=== PATIENT | male | born 1975 | race Caucasian/White ===

== ENCOUNTER 2017-07-02 11:21 | Emergency (ER) | payer OTHER ==
[~2017-07-02] VITALS: Ht 182.9 cm; Wt 95.3 kg
[2017-07-02] MEDS ORDERED: methylPREDNISolone SOD SUCC 125 MG/2 ML VL IM ONE (12:00)
[2017-07-02] MEDS ORDERED: HYDROcodone-ACET 7.5/325MG TAB PO ONE (12:00)
[2017-07-02 13:32] VITALS: BP 148/80
== END 2017-07-02 13:35 | disposition home or self-care (01) ==
LOC: ER 11:21
DX: M54.16 Radiculopathy, lumbar region (principal); G89.29 Other chronic pain; F17.210 Nicotine dependence, cigarettes, uncomplicated
CPT/HCPCS: 72131; 96372; 99284; J2930

== ENCOUNTER 2017-07-13 17:30 | Emergency (ER) | payer OTHER ==
[~2017-07-13] VITALS: Ht 182.9 cm; Wt 95.3 kg
[2017-07-13 18:11] LABS: Urine Bilirubin Negative (Negative); Urine Blood Negative /uL (Negative); Urine Color Yellow (Yellow); Urine Glucose Normal (Normal); Urine Ketone Negative (Negative); Urine Mucus FEW (None Seen); Urine Nitrite Negative (Negative); Urine RBC 3 /hpf (0 - 3)
[2017-07-13] MEDS ORDERED: ONDANSETRON HCL 4 MG/2 ML VIAL IV ONE (19:45)
[2017-07-13] MEDS ORDERED: HYDROmorphone HCL 2 MG/ML VL IV ONE (19:45)
[2017-07-13 20:39] VITALS: BP 115/69
== END 2017-07-13 22:14 | disposition home or self-care (01) ==
LOC: ER 17:30
DX: M54.16 Radiculopathy, lumbar region (principal); M51.37 Other intervertebral disc degeneration, lumbosacral region; F17.210 Nicotine dependence, cigarettes, uncomplicated
CPT/HCPCS: 72131; 81001; 96374; 96375; 99285; J1170; J2405; J7030

== ENCOUNTER 2017-09-11 03:25 | Inpatient (IN) | payer OTHER ==
[~2017-09-11] VITALS: Ht 182.9 cm; Wt 91.7 kg
[2017-09-11 04:16] LABS: Basophils # (auto) 0.1 uL; Basophils % (auto) 1.2 % (0.0-2.0); Eosinophils # (auto) 0.2 uL; Eosinophils % (auto) 2.2 % (0.0-7.0); Hematocrit 43.8 % (41.0-53.0); Hemoglobin 14.8 g/dL (13.5-17.5); Mean Corpuscular Hgb Conc. 33.9 g/dL (32.0-36.0); Mean Corpuscular Volume 85.8 fL (80.0-100.0); Mean Platelet Volume 9.4 fL (6.9-10.8); Monocytes # (auto) 0.4 uL; Monocytes % (auto) 5.3 % (0.0-12.0); Neutrophils # (auto) 4.8 uL; Neutrophils % (auto) 56.3 % (37.0-80.0); Nucleated Red Blood Cells % 0.1 %; Platelet Count (auto) 206 10^3/uL (140-450); Red Cell Distribution Width 14.3 % (11.8-14.3); White Blood Cell 8.5 10^3/uL (4.4-10.8)
[2017-09-11 04:36] LABS: INR 0.98 (0.9-1.15); Partial Thromboplastin Time 27.7 sec (22.64-33.71); Prothrombin Time 10.7 sec (9.37-12.3)
[2017-09-11 04:47] LABS: Albumin 3.6 g/dL (3.4-5.0); Anion Gap 13 (5-15); Aspartate Aminotransferase 12 U/L (15-37); BUN/Creatinine Ratio 11.5; Blood Urea Nitrogen 13 mg/dL (7-18); Calcium 8.9 mg/dL (8.5-10.1); Carbon Dioxide 20 mmol/L (21-32); Chloride 111 mmol/L (98-107); GFR African American 91 mL/min; GFR Non-African American 75 mL/min; Glucose 106 mg/dL (74-106); Potassium 3.5 mmol/L (3.5-5.1); Sodium 144 mmol/L (136-145)
[2017-09-11 04:50] LABS: B-Type Natriuretic Peptide 27.39 pg/mL (0-100)
[2017-09-11 04:51] LABS: Temperature: 23.1 C (20.0-25.0)
[2017-09-11 04:54] LABS: Alkaline Phosphatase 70 U/L (45-117); Bilirubin, Total 0.4 mg/dL (0.2-1.0); Total Protein 7.2 g/dL (6.4-8.2)
[2017-09-11] MEDS ORDERED: ASPirin 81 mg TAB PO ONE (07:30)
[2017-09-11] MEDS ORDERED: SODIUM CHLORIDE 0.9% 1,000 ML IV ONE (07:30)
[2017-09-11] MEDS ORDERED: PANTOPRAZOLE 40 MG/10 ML VIAL IV ONE (07:30)
[2017-09-11] MEDS ORDERED: COLCHICINE 0.6 MG CAP PO ONE (07:30)
[2017-09-11] MEDS ORDERED: ONDANSETRON HCL 4 MG/2 ML VIAL IV ONE (07:30)
[2017-09-11] MEDS ORDERED: MORPHINE SULF INJ 2 MG/ML SYRINGE 1ML IV ONE (07:30)
[2017-09-11] MEDS ORDERED: ACETAMINOPHEN 325 MG TAB PO ONE (08:45)
[2017-09-11] MEDS ORDERED: ZOLPIDEM TARTRATE 5 MG TAB PO PRN (11:00)
[2017-09-11] MEDS ORDERED: ACETAMINOPHEN 325 MG TAB PO PRN (11:00)
[2017-09-11] MEDS ORDERED: ONDANSETRON HCL 4 MG/2 ML VIAL IV PRN (11:00)
[2017-09-11] MEDS ORDERED: PANTOPRAZOLE 40 MG TAB PO ONE (11:00)
[2017-09-11] MEDS ORDERED: NITROGLYCERIN 0.4 MG SL TAB SL PRN ×2 (11:00)
[2017-09-11] MEDS ORDERED: LORazepam 0.5 MG TAB PO PRN (11:00)
[2017-09-11] MEDS ORDERED: ALUM & MAG HYDROX-SIMETH LIQ(MAALOX) 30 ML PO ONE (11:00)
[2017-09-11] MEDS ORDERED: MORPHINE SULF INJ 2 MG/ML SYRINGE 1ML IV PRN ×2 (11:00)
[2017-09-11] MEDS ORDERED: CLOPIDOGREL BISULFATE 75 MG TAB PO SCH (11:15)
[2017-09-11] MEDS: SODIUM CHLOR 0.9% PF (SALINE LOCK) 10ML VIAL IV SCH ×2 (12:01→23:03)
[2017-09-11] MEDS: ENALAPRIL MALEATE 2.5 MG TAB PO SCH ×2 (12:01→21:52)
[2017-09-11] MEDS: methylPREDNISolone SOD SUCC 40 MG/ML VL IV SCH ×2 (12:01→17:13)
[2017-09-11] MEDS ORDERED: POTASSIUM CHL 10% (20 MEQ/15ML) 15ml ORAL SOLN PO ONE (19:15)
[2017-09-11] MEDS ORDERED: IBUPROFEN 600 MG TAB PO ONE (19:15)
[2017-09-11] MEDS: PANTOPRAZOLE 40 MG TAB PO SCH (21:51)
[2017-09-11 22:00] VITALS: BP 110/69
[2017-09-11] MEDS ORDERED: ATORVASTATIN 20 MG TAB PO SCH (22:00)
[2017-09-11 23:37] VITALS: BP 110/69
[2017-09-11] MEDS ORDERED: OMEP20CA74 PO (23:50)
[2017-09-12 05:00] VITALS: BP 105/57
[2017-09-12 06:03] LABS: Basophils # (auto) 0 uL; Basophils % (auto) 0.1 % (0.0-2.0); Eosinophils # (auto) 0 uL; Hematocrit 42.6 % (41.0-53.0); Hemoglobin 14.1 g/dL (13.5-17.5); Lymphocytes # (auto) 1.1 uL; Lymphocytes % (auto) 7.3 % (10.0-50.0); Mean Corpuscular Hemoglobin 28.7 pg (28.0-32.0); Mean Corpuscular Hgb Conc. 33.2 g/dL (32.0-36.0); Mean Corpuscular Volume 86.3 fL (80.0-100.0); Mean Platelet Volume 9.7 fL (6.9-10.8); Monocytes # (auto) 0.3 uL; Monocytes % (auto) 2.1 % (0.0-12.0); Neutrophils % (auto) 90.5 % (37.0-80.0); Nucleated Red Blood Cells % 0.1 %; Platelet Count (auto) 223 10^3/uL (140-450); Red Cell Distribution Width 14.2 % (11.8-14.3); White Blood Cell 15.5 10^3/uL (4.4-10.8)
[2017-09-12] MEDS: SODIUM CHLOR 0.9% PF (SALINE LOCK) 10ML VIAL IV SCH ×3 (06:08→22:07)
[2017-09-12] MEDS: IBUPROFEN 600 MG TAB PO SCH ×3 (06:13→22:07)
[2017-09-12 06:21] LABS: Albumin 3.3 g/dL (3.4-5.0); BUN/Creatinine Ratio 11.2; Bilirubin, Total 0.3 mg/dL (0.2-1.0); Potassium 4.5 mmol/L (3.5-5.1)
[2017-09-12 08:00] VITALS: BP 109/63
[2017-09-12 08:07] LABS: Thyroid Peroxidase (TPO) Ab 22 IU/mL (0-34)
[2017-09-12 08:38] VITALS: BP 109/65
[2017-09-12] MEDS: DOCUSATE SOD 100 MG CAP PO SCH (09:25)
[2017-09-12] MEDS: COLCHICINE 0.6 MG CAP PO SCH ×2 (09:25→17:52)
[2017-09-12] MEDS: ENALAPRIL MALEATE 2.5 MG TAB PO SCH ×2 (09:25→22:00)
[2017-09-12] MEDS: PANTOPRAZOLE 40 MG TAB PO SCH ×2 (09:26→22:07)
[2017-09-12] MEDS: ASPirin 81 mg TAB PO SCH (09:26)
[2017-09-12 12:42] VITALS: BP 113/57
[2017-09-12] MEDS: HYDROcodone-ACET 5/325MG TAB PO PRN ×2 (12:51→23:24)
[2017-09-12 12:52] LABS: Urine RBC None Seen /hpf (0 - 3)
[2017-09-12 14:06] LABS: Urine Bilirubin Negative (Negative); Urine Blood Negative /uL (Negative); Urine Color Yellow (Yellow); Urine Glucose Normal (Normal); Urine Ketone Negative (Negative); Urine Nitrite Negative (Negative); Urine Squamous Epithelial Cell FEW /hpf (<5); Urine Urobilinogen Normal (Negative)
[2017-09-12 17:41] VITALS: BP 125/56
[2017-09-12 22:00] VITALS: BP 94/63
[2017-09-13 05:00] VITALS: BP 100/59
[2017-09-13] MEDS: IBUPROFEN 600 MG TAB PO SCH (06:12)
[2017-09-13 06:14] LABS: Basophils # (auto) 0.1 uL; Basophils % (auto) 1.2 % (0.0-2.0); Eosinophils # (auto) 0.1 uL; Eosinophils % (auto) 0.7 % (0.0-7.0); Hematocrit 42.5 % (41.0-53.0); Hemoglobin 14.3 g/dL (13.5-17.5); Lymphocytes # (auto) 3.6 uL; Lymphocytes % (auto) 38.3 % (10.0-50.0); Mean Corpuscular Hemoglobin 29.1 pg (28.0-32.0); Mean Corpuscular Hgb Conc. 33.6 g/dL (32.0-36.0); Mean Corpuscular Volume 86.7 fL (80.0-100.0); Mean Platelet Volume 9.8 fL (6.9-10.8); Monocytes # (auto) 0.6 uL; Monocytes % (auto) 6.6 % (0.0-12.0); Neutrophils % (auto) 53.2 % (37.0-80.0); Nucleated Red Blood Cells % 0.1 %; Platelet Count (auto) 210 10^3/uL (140-450); Red Cell Distribution Width 14.8 % (11.8-14.3); White Blood Cell 9.5 10^3/uL (4.4-10.8)
[2017-09-13] MEDS: SODIUM CHLOR 0.9% PF (SALINE LOCK) 10ML VIAL IV SCH (06:14)
[2017-09-13 06:40] LABS: Albumin 3.4 g/dL (3.4-5.0); Anion Gap 11 (5-15); Blood Urea Nitrogen 14 mg/dL (7-18); Calcium 8.3 mg/dL (8.5-10.1); Carbon Dioxide 20 mmol/L (21-32); Chloride 111 mmol/L (98-107); Glucose 97 mg/dL (74-106); Sodium 142 mmol/L (136-145)
[2017-09-13 06:43] LABS: Aspartate Aminotransferase 8 U/L (15-37); BUN/Creatinine Ratio 14.6; GFR African American 110 mL/min; GFR Non-African American 91 mL/min
[2017-09-13 06:47] LABS: Alkaline Phosphatase 63 U/L (45-117); Bilirubin, Total 0.2 mg/dL (0.2-1.0); Total Protein 6.7 g/dL (6.4-8.2)
[2017-09-13 08:00] VITALS: BP 94/63
[2017-09-13] MEDS ORDERED: ALBUTEROL SULF 2.5 MG/0.5ML(0.5%) NEB SOLN ONE (09:47)
[2017-09-13] MEDS ORDERED: IPRATROPIUM BROM 0.5 MG/2.5ML INH SOL ONE (09:47)
[2017-09-13 09:57] VITALS: BP 108/59
[2017-09-13] MEDS: DOCUSATE SOD 100 MG CAP PO SCH (10:00)
[2017-09-13] MEDS ORDERED: ADENOSINE 77 MG in GIVE UN-DILUTED 0 ML IV ONE (10:00)
[2017-09-13] MEDS: ENALAPRIL MALEATE 2.5 MG TAB PO SCH (10:00)
[2017-09-13] MEDS ORDERED: PANT40T PO (11:55)
[2017-09-13] MEDS ORDERED: IBU600T PO (11:58)
[2017-09-13] MEDS ORDERED: COLC0.6T56 PO (11:58)
[2017-09-13] MEDS: ASPirin 81 mg TAB PO SCH (12:16)
[2017-09-13] MEDS: COLCHICINE 0.6 MG CAP PO SCH (12:16)
[2017-09-13] MEDS: PANTOPRAZOLE 40 MG TAB PO SCH (12:16)
[2017-09-13 12:30] VITALS: BP 101/59
[2017-09-13 13:28] VITALS: BP 101/59
[2017-09-13 16:07] LABS: Sjogren's Anti-SS-A Antibody <0.2 AI (0.0-0.9)
[2017-09-14 10:08] LABS: Anti-intermyofibrillar Ab Negative (Neg:<1:20); Anti-sarcolemma Antibody Negative (Neg:<1:20)
== END 2017-09-13 14:26 | disposition home or self-care (01) | DRG 316 ==
LOC: EDBD 03:25 → ER 03:32 → TELE 03:33 → TELE-WESTW 21:55
PROVIDERS: ADMIT Internal Medicine; ATTEND Internal Medicine
DX: I30.9 Acute pericarditis, unspecified (principal); E66.9 Obesity, unspecified; K21.9 Gastro-esophageal reflux disease without esophagitis; E78.00 Pure hypercholesterolemia, unspecified; M54.16 Radiculopathy, lumbar region; E78.5 Hyperlipidemia, unspecified; N18.2 Chronic kidney disease, stage 2 (mild); F17.210 Nicotine dependence, cigarettes, uncomplicated; Z82.3 Family history of stroke; Z80.9 Family history of malignant neoplasm, unspecified; Z68.27 Body mass index [BMI] 27.0-27.9, adult
CPT/HCPCS: 36415; 71010; 78452; 80053; 80061; 81001; 83735; 83880; 84443; 84484; 85025; 85379; 85610; 85652; 85730; 86141; 86225; 86235; 86431; 93005; 93017; 93306; 94640; 96361; 96374; 96375; 99291; C9113; J0153; J2405

== ENCOUNTER → 2020-01-12 | Outpatient (CLI) | payer OTHER ==
[~2020-01-12] MED LIST: COLC0.6T56 PO; IBU600T PO; OMEP20CA74 PO; PANT40T PO
[2020-01-12 13:26] LABS: Basophils # (auto) 0.1 uL; Basophils % (auto) 0.9 % (0.0-2.0); Eosinophils # (auto) 0.3 uL; Eosinophils % (auto) 3.2 % (0.0-7.0); Hematocrit 47.2 % (41.0-53.0); Hemoglobin 15.6 g/dL (13.5-17.5); Lymphocytes # (auto) 2.2 uL; Lymphocytes % (auto) 26.2 % (10.0-50.0); Mean Corpuscular Hemoglobin 28.2 pg (28.0-32.0); Mean Corpuscular Volume 85.4 fL (80.0-100.0); Monocytes # (auto) 0.4 uL; Monocytes % (auto) 5.5 % (0.0-12.0); Neutrophils # (auto) 5.3 uL; Neutrophils % (auto) 64.2 % (37.0-80.0); Platelet Count (auto) 226 10^3/uL (140-450); Red Blood Cells 5.53 10^6/uL (4.5-5.90); White Blood Cell 8.2 10^3/uL (4.4-10.8)
[2020-01-12 13:28] LABS: Urine Bacteria NONE SEEN /hpf (None Seen); Urine Blood Negative /uL (Negative); Urine Mucus FEW (None Seen); Urine Specific Gravity 1.029 (1.001-1.035); Urine WBC <1 /hpf (0 - 3)
[2020-01-12 14:22] LABS: Albumin 3.8 g/dL (3.4-5.0); Calcium 9.4 mg/dL (8.5-10.1); Potassium 4.2 mmol/L (3.5-5.1)
[2020-01-12 14:26] LABS: BUN/Creatinine Ratio 14.6; Bilirubin, Total 0.4 mg/dL (0.2-1.0); Total Protein 8.2 g/dL (6.4-8.2)
== END | disposition home or self-care (01) ==
LOC: LAB 12:49
PROVIDERS: ATTEND Internal Medicine
DX: E78.00 Pure hypercholesterolemia, unspecified (principal); R07.81 Pleurodynia
CPT/HCPCS: 36415; 80053; 81001; 84439; 84443; 85025; 85379; 85652

== ENCOUNTER → 2020-04-13 | Outpatient (CLI) | payer OTHER ==
[~2020-04-13] MED LIST changes: +ALBUTEROL SULF 2.5 MG/0.5ML(0.5%) NEB SOLN ONE; +GABA100C9 PO
== END | disposition home or self-care (01) ==
LOC: RT 08:51
PROVIDERS: ATTEND Internal Medicine
DX: J18.9 Pneumonia, unspecified organism (principal)
CPT/HCPCS: 94060; 94727; 94729

== ENCOUNTER 2020-04-22 17:42 | Inpatient (IN) | payer OTHER ==
[~2020-04-22] VITALS: Ht 182.9 cm; Wt 99.5 kg
[~2020-04-22 17:42] MED LIST changes: -ALBUTEROL SULF 2.5 MG/0.5ML(0.5%) NEB SOLN ONE; -GABA100C9 PO
[2020-04-22 18:31] LABS: Basophils # (auto) 0.1 10 ^3/uL (0-0.2); Basophils % (auto) 0.8 % (0.0-2.0); Eosinophils # (auto) 0.2 10 ^3/uL (0-0.8); Eosinophils % (auto) 2.7 % (0.0-7.0); Hematocrit 45.1 % (41.0-53.0); Hemoglobin 15.1 g/dL (13.5-17.5); Lymphocytes # (auto) 2.2 10 ^3/uL (0.4-5.4); Lymphocytes % (auto) 28.5 % (10.0-50.0); Mean Corpuscular Hemoglobin 28.4 pg (28.0-32.0); Mean Corpuscular Hgb Conc. 33.5 g/dL (32.0-36.0); Monocytes # (auto) 0.5 10 ^3/uL (0-1.3); Monocytes % (auto) 6.1 % (0.0-12.0); Neutrophils # (auto) 4.7 10 ^3/uL (1.6-8.6); Neutrophils % (auto) 61.9 % (37.0-80.0); Nucleated Red Blood Cells % 0.1 %; Platelet Count (auto) 233 10^3/uL (140-450); Red Cell Distribution Width 14.5 % (11.8-14.3); White Blood Cell 7.6 10^3/uL (4.4-10.8)
[2020-04-22 18:51] LABS: Albumin 3.7 g/dL (3.4-5.0); BUN/Creatinine Ratio 12.9; Calcium 8.6 mg/dL (8.5-10.1); Potassium 3.7 mmol/L (3.5-5.1)
[2020-04-22 18:55] LABS: Bilirubin, Total 0.4 mg/dL (0.2-1.0)
[2020-04-22 19:47] LABS: Urine Bacteria NONE SEEN /hpf (None Seen); Urine Blood Negative /uL (Negative); Urine Mucus FEW (None Seen); Urine Specific Gravity 1.024 (1.001-1.035); Urine WBC 1 /hpf (0 - 3)
[2020-04-22] MEDS ORDERED: SODIUM CHLORIDE 0.9% 1,000 ML IV ONE (22:54)
[2020-04-22] MEDS ORDERED: HYDROmorphone HCL 2 MG/ML VL IV ONE (23:00)
[2020-04-22] MEDS ORDERED: ONDANSETRON HCL 4 MG/2 ML VIAL IV ONE (23:00)
[2020-04-23] MEDS ORDERED: DOCUSATE SOD 100 MG CAP PO PRN (02:15)
[2020-04-23] MEDS ORDERED: HYDROcodone-ACET 5/325MG TAB PO PRN (02:15)
[2020-04-23] MEDS: D5W 5% 1,000 ML IV SCH ×2 (02:34→18:17)
[2020-04-23] MEDS: metroNIDAZOLE 500MG/100ML 100 ML IV SCH ×3 (02:35→18:17)
[2020-04-23] MEDS ORDERED: GABA100C9 PO (04:55)
[2020-04-23] MEDS: MORPHINE SULF INJ 2 MG/ML SYRINGE 1ML IV PRN ×3 (05:43→21:58)
[2020-04-23] MEDS: ONDANSETRON HCL 4 MG/2 ML VIAL IV PRN ×3 (05:43→21:59)
[2020-04-23 07:16] LABS: Basophils # (auto) 0.1 10 ^3/uL (0-0.2); Basophils % (auto) 0.8 % (0.0-2.0); Eosinophils # (auto) 0.2 10 ^3/uL (0-0.8); Eosinophils % (auto) 3.5 % (0.0-7.0); Hematocrit 41.6 % (41.0-53.0); Hemoglobin 13.8 g/dL (13.5-17.5); Lymphocytes # (auto) 2.3 10 ^3/uL (0.4-5.4); Mean Corpuscular Hemoglobin 28.5 pg (28.0-32.0); Mean Corpuscular Hgb Conc. 33.2 g/dL (32.0-36.0); Mean Corpuscular Volume 85.7 fL (80.0-100.0); Monocytes # (auto) 0.5 10 ^3/uL (0-1.3); Monocytes % (auto) 7.7 % (0.0-12.0); Neutrophils # (auto) 3.2 10 ^3/uL (1.6-8.6); Nucleated Red Blood Cells % 0.2 %; Platelet Count (auto) 225 10^3/uL (140-450); Red Blood Cells 4.85 10^6/uL (4.5-5.90); Red Cell Distribution Width 14.3 % (11.8-14.3); White Blood Cell 6.2 10^3/uL (4.4-10.8)
[2020-04-23 07:32] LABS: Calcium 8.2 mg/dL (8.5-10.1)
[2020-04-23 07:34] LABS: BUN/Creatinine Ratio 14.9
[2020-04-23 13:08] VITALS: BP 120/76
[2020-04-23] MEDS: ACETAMINOPHEN 325 MG TAB PO PRN (13:30)
[2020-04-23] MEDS ORDERED: cefTRIAXone 1GM/50ML D5W 50 ML IV ONE (14:15)
[2020-04-23 15:32] LABS: INR 1.03 (0.9-1.15)
[2020-04-23 17:00] VITALS: BP 116/65
[2020-04-23 23:30] VITALS: BP 112/67
[2020-04-24] MEDS: metroNIDAZOLE 500MG/100ML 100 ML IV SCH ×5 (00:24→23:11)
[2020-04-24 05:54] VITALS: BP 98/63
[2020-04-24 06:25] LABS: Basophils # (auto) 0 10 ^3/uL (0-0.2); Basophils % (auto) 0.6 % (0.0-2.0); Eosinophils # (auto) 0.2 10 ^3/uL (0-0.8); Eosinophils % (auto) 3.7 % (0.0-7.0); Hematocrit 43.1 % (41.0-53.0); Hemoglobin 14.5 g/dL (13.5-17.5); Lymphocytes # (auto) 1.7 10 ^3/uL (0.4-5.4); Lymphocytes % (auto) 27.3 % (10.0-50.0); Mean Corpuscular Hemoglobin 28.9 pg (28.0-32.0); Mean Corpuscular Hgb Conc. 33.6 g/dL (32.0-36.0); Monocytes # (auto) 0.4 10 ^3/uL (0-1.3); Monocytes % (auto) 6.7 % (0.0-12.0); Neutrophils # (auto) 3.9 10 ^3/uL (1.6-8.6); Neutrophils % (auto) 61.7 % (37.0-80.0); Nucleated Red Blood Cells % 0.1 %; Platelet Count (auto) 194 10^3/uL (140-450); Red Blood Cells 5.01 10^6/uL (4.5-5.90); Red Cell Distribution Width 14.4 % (11.8-14.3); White Blood Cell 6.3 10^3/uL (4.4-10.8)
[2020-04-24] MEDS: MORPHINE SULF INJ 2 MG/ML SYRINGE 1ML IV PRN ×4 (06:38→22:18)
[2020-04-24 06:43] LABS: Calcium 8.4 mg/dL (8.5-10.1); Potassium 3.8 mmol/L (3.5-5.1)
[2020-04-24 06:45] LABS: BUN/Creatinine Ratio 10.2
[2020-04-24] MEDS: ONDANSETRON HCL 4 MG/2 ML VIAL IV PRN ×4 (06:47→22:19)
[2020-04-24 09:13] VITALS: BP 117/74
[2020-04-24] MEDS: cefTRIAXone 1GM/50ML D5W 50 ML IV SCH (10:31)
[2020-04-24] MEDS: PANTOPRAZOLE 40 MG/10 ML VIAL INJ IV SCH (10:31)
[2020-04-24 13:00] VITALS: BP 106/68
[2020-04-24] MEDS: D5W 5% 1,000 ML IV SCH (14:34)
[2020-04-24 17:14] VITALS: BP 122/64
[2020-04-24 22:00] VITALS: BP 156/87
[2020-04-25] MEDS: D5W 5% 1,000 ML IV SCH ×2 (04:14→21:11)
[2020-04-25] MEDS: MORPHINE SULF INJ 2 MG/ML SYRINGE 1ML IV PRN ×4 (04:46→20:26)
[2020-04-25] MEDS: ONDANSETRON HCL 4 MG/2 ML VIAL IV PRN ×3 (04:46→20:26)
[2020-04-25 05:00] VITALS: BP 114/64
[2020-04-25] MEDS: metroNIDAZOLE 500MG/100ML 100 ML IV SCH ×3 (05:27→17:28)
[2020-04-25 05:43] LABS: Basophils # (auto) 0 10 ^3/uL (0-0.2); Basophils % (auto) 0.6 % (0.0-2.0); Eosinophils # (auto) 0.2 10 ^3/uL (0-0.8); Eosinophils % (auto) 2.6 % (0.0-7.0); Hemoglobin 13.8 g/dL (13.5-17.5); Lymphocytes % (auto) 30.2 % (10.0-50.0); Mean Corpuscular Hemoglobin 28.9 pg (28.0-32.0); Mean Corpuscular Hgb Conc. 33.8 g/dL (32.0-36.0); Mean Corpuscular Volume 85.5 fL (80.0-100.0); Monocytes # (auto) 0.5 10 ^3/uL (0-1.3); Monocytes % (auto) 7.5 % (0.0-12.0); Neutrophils # (auto) 3.9 10 ^3/uL (1.6-8.6); Neutrophils % (auto) 59.1 % (37.0-80.0); Nucleated Red Blood Cells % 0.1 %; Platelet Count (auto) 198 10^3/uL (140-450); Red Cell Distribution Width 14.4 % (11.8-14.3); White Blood Cell 6.6 10^3/uL (4.4-10.8)
[2020-04-25 05:51] LABS: Calcium 8.3 mg/dL (8.5-10.1); Potassium 3.6 mmol/L (3.5-5.1)
[2020-04-25 07:27] LABS: BUN/Creatinine Ratio 6.8
[2020-04-25] MEDS: PANTOPRAZOLE 40 MG/10 ML VIAL INJ IV SCH (08:24)
[2020-04-25] MEDS: cefTRIAXone 1GM/50ML D5W 50 ML IV SCH (08:24)
[2020-04-25 09:00] VITALS: BP 102/62
[2020-04-25 13:00] VITALS: BP 117/72
[2020-04-25 16:23] LABS: INR 1.05 (0.9-1.15); Partial Thromboplastin Time 31.1 sec (23.64-32.05)
[2020-04-25] MEDS: SUCRALFATE 1 GM/10 ML ORAL SUSP PO SCH ×2 (16:44→21:56)
[2020-04-25 20:15] VITALS: BP 123/77
[2020-04-25] MEDS: PANTOPRAZOLE 40 MG TAB PO SCH (21:56)
[2020-04-25 22:00] VITALS: BP 123/77
[2020-04-26] MEDS: metroNIDAZOLE 500MG/100ML 100 ML IV SCH ×4 (00:08→17:01)
[2020-04-26] MEDS: MORPHINE SULF INJ 2 MG/ML SYRINGE 1ML IV PRN ×4 (00:28→20:46)
[2020-04-26] MEDS: ONDANSETRON HCL 4 MG/2 ML VIAL IV PRN ×4 (00:28→20:47)
[2020-04-26 05:25] VITALS: BP 106/64
[2020-04-26] MEDS: SUCRALFATE 1 GM/10 ML ORAL SUSP PO SCH ×4 (06:24→22:10)
[2020-04-26 07:11] LABS: Basophils # (auto) 0.1 10 ^3/uL (0-0.2); Eosinophils # (auto) 0.2 10 ^3/uL (0-0.8); Eosinophils % (auto) 3.1 % (0.0-7.0); Hematocrit 43.1 % (41.0-53.0); Hemoglobin 14.2 g/dL (13.5-17.5); Lymphocytes # (auto) 1.7 10 ^3/uL (0.4-5.4); Lymphocytes % (auto) 25.8 % (10.0-50.0); Mean Corpuscular Hemoglobin 28.3 pg (28.0-32.0); Mean Corpuscular Hgb Conc. 32.9 g/dL (32.0-36.0); Mean Corpuscular Volume 86.2 fL (80.0-100.0); Monocytes # (auto) 0.5 10 ^3/uL (0-1.3); Monocytes % (auto) 7.3 % (0.0-12.0); Neutrophils # (auto) 4.2 10 ^3/uL (1.6-8.6); Neutrophils % (auto) 62.8 % (37.0-80.0); Platelet Count (auto) 202 10^3/uL (140-450); Red Blood Cells 4.99 10^6/uL (4.5-5.90); Red Cell Distribution Width 14.2 % (11.8-14.3); White Blood Cell 6.7 10^3/uL (4.4-10.8)
[2020-04-26 07:24] LABS: Calcium 8.6 mg/dL (8.5-10.1); Potassium 3.6 mmol/L (3.5-5.1)
[2020-04-26 07:26] LABS: BUN/Creatinine Ratio 6.5
[2020-04-26 08:00] VITALS: BP 119/65
[2020-04-26] MEDS: cefTRIAXone 1GM/50ML D5W 50 ML IV SCH (09:10)
[2020-04-26] MEDS: PANTOPRAZOLE 40 MG TAB PO SCH ×2 (09:10→22:10)
[2020-04-26] MEDS ORDERED: SODIUM CHLORIDE LOCK 10 ML ONE (09:17)
[2020-04-26] MEDS ORDERED: LIDOCAINE VISCOUS 2% 15ML UD ONE (09:17)
[2020-04-26] MEDS ORDERED: diphenhdrAMINE HCL 50 MG/1 ML VL ONE (09:18)
[2020-04-26 09:34] VITALS: BP 119/65
[2020-04-26] MEDS: fentaNYL CITRATE 100 MCG/2 ML VL ONE ×2 (11:59→12:02)
[2020-04-26] MEDS: MIDAZOLAM HCL 5 MG/ML-1ML VIAL ONE ×2 (11:59→12:02)
[2020-04-26 13:00] VITALS: BP 127/72
[2020-04-26 13:12] LABS: Hepatitis A Ab IgM Negative; Hepatitis B Core IgM Negative; Hepatitis B Surface Antigen Negative (Negative); Hepatitis C Antibody Negative (Negative)
[2020-04-26] MEDS ORDERED: LORazepam 2MG/ML-1ML VIAL IV ONE (13:15)
[2020-04-26] MEDS: D5W 5% 1,000 ML IV SCH (13:49)
[2020-04-26 17:00] VITALS: BP 119/72
[2020-04-26 22:00] VITALS: BP 133/71
[2020-04-27] MEDS: metroNIDAZOLE 500MG/100ML 100 ML IV SCH ×5 (00:02→23:18)
[2020-04-27 05:00] VITALS: BP 121/78
[2020-04-27] MEDS: SUCRALFATE 1 GM/10 ML ORAL SUSP PO SCH ×4 (06:07→22:03)
[2020-04-27] MEDS: ONDANSETRON HCL 4 MG/2 ML VIAL IV PRN (06:08)
[2020-04-27] MEDS: MORPHINE SULF INJ 2 MG/ML SYRINGE 1ML IV PRN ×3 (06:08→22:05)
[2020-04-27] MEDS: D5W 5% 1,000 ML IV SCH ×2 (06:23→23:14)
[2020-04-27 06:58] LABS: Basophils # (auto) 0.1 10 ^3/uL (0-0.2); Eosinophils # (auto) 0.2 10 ^3/uL (0-0.8); Eosinophils % (auto) 3.5 % (0.0-7.0); Hematocrit 42.2 % (41.0-53.0); Hemoglobin 14.1 g/dL (13.5-17.5); Lymphocytes # (auto) 1.8 10 ^3/uL (0.4-5.4); Mean Corpuscular Hemoglobin 28.8 pg (28.0-32.0); Mean Corpuscular Hgb Conc. 33.5 g/dL (32.0-36.0); Mean Corpuscular Volume 86.1 fL (80.0-100.0); Monocytes # (auto) 0.5 10 ^3/uL (0-1.3); Monocytes % (auto) 7.3 % (0.0-12.0); Neutrophils # (auto) 3.7 10 ^3/uL (1.6-8.6); Neutrophils % (auto) 59.2 % (37.0-80.0); Nucleated Red Blood Cells % 0.1 %; Platelet Count (auto) 201 10^3/uL (140-450); Red Cell Distribution Width 14.2 % (11.8-14.3); White Blood Cell 6.3 10^3/uL (4.4-10.8)
[2020-04-27 07:02] LABS: BUN/Creatinine Ratio 8.2; Calcium 8.7 mg/dL (8.5-10.1); Potassium 3.7 mmol/L (3.5-5.1)
[2020-04-27 08:00] VITALS: BP 108/67
[2020-04-27 09:00] VITALS: BP 108/67
[2020-04-27] MEDS: PANTOPRAZOLE 40 MG TAB PO SCH ×2 (09:00→22:03)
[2020-04-27] MEDS: cefTRIAXone 1GM/50ML D5W 50 ML IV SCH (09:00)
[2020-04-27 13:00] VITALS: BP 117/67
[2020-04-27 16:50] VITALS: BP 102/68
[2020-04-27 22:00] VITALS: BP 117/55
[2020-04-27] MEDS: PROMETHAZINE HCL 25 MG/ML 1ML IV PRN (22:05)
[2020-04-28 05:01] VITALS: BP 98/65
[2020-04-28] MEDS: metroNIDAZOLE 500MG/100ML 100 ML IV SCH (05:40)
[2020-04-28] MEDS: MORPHINE SULF INJ 2 MG/ML SYRINGE 1ML IV PRN ×3 (06:12→19:50)
[2020-04-28 06:21] LABS: Basophils # (auto) 0.1 10 ^3/uL (0-0.2); Basophils % (auto) 0.8 % (0.0-2.0); Eosinophils # (auto) 0.2 10 ^3/uL (0-0.8); Eosinophils % (auto) 3.9 % (0.0-7.0); Hematocrit 41.9 % (41.0-53.0); Lymphocytes # (auto) 2.2 10 ^3/uL (0.4-5.4); Lymphocytes % (auto) 35.3 % (10.0-50.0); Mean Corpuscular Hemoglobin 28.5 pg (28.0-32.0); Mean Corpuscular Hgb Conc. 33.4 g/dL (32.0-36.0); Mean Corpuscular Volume 85.3 fL (80.0-100.0); Monocytes # (auto) 0.5 10 ^3/uL (0-1.3); Monocytes % (auto) 7.6 % (0.0-12.0); Neutrophils # (auto) 3.3 10 ^3/uL (1.6-8.6); Neutrophils % (auto) 52.4 % (37.0-80.0); Nucleated Red Blood Cells % 0.1 %; Platelet Count (auto) 214 10^3/uL (140-450); Red Blood Cells 4.91 10^6/uL (4.5-5.90); Red Cell Distribution Width 14.4 % (11.8-14.3); White Blood Cell 6.3 10^3/uL (4.4-10.8)
[2020-04-28] MEDS: SUCRALFATE 1 GM/10 ML ORAL SUSP PO SCH ×4 (06:33→21:34)
[2020-04-28 06:44] LABS: Potassium 3.7 mmol/L (3.5-5.1)
[2020-04-28 06:51] LABS: Calcium 8.3 mg/dL (8.5-10.1)
[2020-04-28] MEDS: PROMETHAZINE HCL 25 MG/ML 1ML IV PRN ×2 (08:56→16:14)
[2020-04-28] MEDS: PANTOPRAZOLE 40 MG TAB PO SCH ×2 (08:56→21:35)
[2020-04-28] MEDS: cefTRIAXone 1GM/50ML D5W 50 ML IV SCH (08:56)
[2020-04-28 09:00] VITALS: BP 118/71
[2020-04-28 13:00] VITALS: BP 129/72
[2020-04-28 17:00] VITALS: BP 137/74
[2020-04-28] MEDS: ACETAMINOPHEN 325 MG TAB PO PRN (17:52)
[2020-04-28 22:00] VITALS: BP 126/65
[2020-04-29 05:00] VITALS: BP 115/83
[2020-04-29] MEDS: MORPHINE SULF INJ 2 MG/ML SYRINGE 1ML IV PRN ×3 (05:09→23:39)
[2020-04-29] MEDS: SUCRALFATE 1 GM/10 ML ORAL SUSP PO SCH ×4 (06:29→22:13)
[2020-04-29] MEDS: PANTOPRAZOLE 40 MG TAB PO SCH ×2 (08:59→22:14)
[2020-04-29] MEDS: PROMETHAZINE HCL 25 MG/ML 1ML IV PRN (08:59)
[2020-04-29 09:00] VITALS: BP 125/74
[2020-04-29 14:39] VITALS: BP 119/71
[2020-04-29] MEDS: HYOSCYAMINE SULF 0.125 MG ODT TAB PO PRN ×2 (16:06→22:14)
[2020-04-29 17:00] VITALS: BP 140/93
[2020-04-29 20:00] VITALS: BP 120/85
[2020-04-29] MEDS: ACETAMINOPHEN 325 MG TAB PO PRN (20:51)
[2020-04-29 21:57] VITALS: BP 120/85
[2020-04-30] VITALS (7 sets, daily range): BP systolic 103–128; BP diastolic 68–84
[2020-04-30] MEDS: SUCRALFATE 1 GM/10 ML ORAL SUSP PO SCH ×4 (06:33→22:26)
[2020-04-30 07:04] LABS: Basophils # (auto) 0.1 10 ^3/uL (0-0.2); Basophils % (auto) 0.9 % (0.0-2.0); Eosinophils # (auto) 0.2 10 ^3/uL (0-0.8); Eosinophils % (auto) 3.8 % (0.0-7.0); Hematocrit 45.8 % (41.0-53.0); Hemoglobin 15.4 g/dL (13.5-17.5); Lymphocytes # (auto) 2.1 10 ^3/uL (0.4-5.4); Lymphocytes % (auto) 32.3 % (10.0-50.0); Mean Corpuscular Hemoglobin 29.1 pg (28.0-32.0); Mean Corpuscular Hgb Conc. 33.6 g/dL (32.0-36.0); Mean Corpuscular Volume 86.6 fL (80.0-100.0); Monocytes # (auto) 0.5 10 ^3/uL (0-1.3); Monocytes % (auto) 6.9 % (0.0-12.0); Neutrophils # (auto) 3.7 10 ^3/uL (1.6-8.6); Neutrophils % (auto) 56.1 % (37.0-80.0); Nucleated Red Blood Cells % 0.1 %; Platelet Count (auto) 220 10^3/uL (140-450); Red Blood Cells 5.29 10^6/uL (4.5-5.90); Red Cell Distribution Width 14.7 % (11.8-14.3); White Blood Cell 6.6 10^3/uL (4.4-10.8)
[2020-04-30 07:23] LABS: Albumin 3.6 g/dL (3.4-5.0); Calcium 8.9 mg/dL (8.5-10.1); Potassium 4.5 mmol/L (3.5-5.1)
[2020-04-30 07:26] LABS: BUN/Creatinine Ratio 10.2; Bilirubin, Total 0.5 mg/dL (0.2-1.0); Total Protein 7.5 g/dL (6.4-8.2)
[2020-04-30] MEDS: PANTOPRAZOLE 40 MG TAB PO SCH ×2 (09:39→22:26)
[2020-04-30] MEDS: MORPHINE SULF INJ 2 MG/ML SYRINGE 1ML IV PRN (09:40)
[2020-04-30] MEDS: HYOSCYAMINE SULF 0.125 MG ODT TAB PO PRN ×3 (09:44→22:31)
[2020-04-30] MEDS ORDERED: ONDANSETRON ODT 4 MG TAB PO PRN (14:45)
[2020-04-30] MEDS: HYDROcodone-ACET 5/325MG TAB PO PRN (18:29)
[2020-04-30] MEDS: DOCUSATE SOD 100 MG CAP PO SCH (22:00)
[2020-05-01] VITALS (7 sets, daily range): BP systolic 98–112; BP diastolic 60–73
[2020-05-01] MEDS: HYDROcodone-ACET 5/325MG TAB PO PRN ×4 (00:39→20:21)
[2020-05-01] MEDS: SUCRALFATE 1 GM/10 ML ORAL SUSP PO SCH ×4 (06:22→21:57)
[2020-05-01] MEDS: DOCUSATE SOD 100 MG CAP PO SCH ×2 (09:30→21:58)
[2020-05-01] MEDS: PANTOPRAZOLE 40 MG TAB PO SCH ×2 (09:30→21:57)
[2020-05-01] MEDS: HYOSCYAMINE SULF 0.125 MG ODT TAB PO PRN (10:29)
[2020-05-01] MEDS ORDERED: PROMETHAZINE HCL 6.25 MG/5 ML ORAL SYRUP PO PRN (10:45)
[2020-05-02 04:58] VITALS: BP 104/64
[2020-05-02] MEDS: SUCRALFATE 1 GM/10 ML ORAL SUSP PO SCH ×2 (06:21→12:02)
[2020-05-02] MEDS: HYDROcodone-ACET 5/325MG TAB PO PRN (07:55)
[2020-05-02 08:00] VITALS: BP 110/71
[2020-05-02 08:58] VITALS: BP 110/71
[2020-05-02] MEDS: DOCUSATE SOD 100 MG CAP PO SCH (10:00)
[2020-05-02] MEDS: PANTOPRAZOLE 40 MG TAB PO SCH (10:39)
[2020-05-02 12:38] VITALS: BP 108/75
== END 2020-05-02 14:45 | disposition home or self-care (01) | DRG 446 ==
LOC: ER 17:42 → OVERFLOW 17:43 → WEST WING 04-23 10:07
PROVIDERS: ADMIT Hospitalist; ATTEND Internal Medicine Nephrology
PROC: CF2YYZZ Tomographic (Tomo) Nuclear Medicine Imaging of Hepatobiliary System and Pancreas using Other Radionuclide (ICD-10-PCS; 2020-04-24)
PROC: BF35ZZZ Magnetic Resonance Imaging (MRI) of Liver (ICD-10-PCS; 2020-04-26)
PROC: 0DB68ZX Excision of Stomach, Via Natural or Artificial Opening Endoscopic, Diagnostic (ICD-10-PCS; principal; 2020-04-26 11:56)
DX: K82.8 Other specified diseases of gallbladder (principal); K29.80 Duodenitis without bleeding; K29.70 Gastritis, unspecified, without bleeding; K81.9 Cholecystitis, unspecified; R16.0 Hepatomegaly, not elsewhere classified; G89.29 Other chronic pain; K21.9 Gastro-esophageal reflux disease without esophagitis; K44.9 Diaphragmatic hernia without obstruction or gangrene; G58.9 Mononeuropathy, unspecified; M54.9 Dorsalgia, unspecified; F17.210 Nicotine dependence, cigarettes, uncomplicated; Z79.899 Other long term (current) drug therapy; Z80.1 Family history of malignant neoplasm of trachea, bronchus and lung; Z82.5 Family history of asthma and other chronic lower respiratory diseases; Z82.3 Family history of stroke; Z81.8 Family history of other mental and behavioral disorders
CPT/HCPCS: 36415; 74176; 74181; 76705; 78226; 80048; 80053; 80074; 81001; 82150; 83036; 83690; 84443; 85025; 85610; 85730; 86308; 86850; 86900; 86901; 93005; C9113; G0378; J0696; J2250; J2405; J3490

== ENCOUNTER → 2020-06-01 | Outpatient (CLI) | payer OTHER ==
[~2020-06-01] MED LIST changes: +GABA100C9 PO
[2020-06-01 14:23] LABS: Basophils # (auto) 0.1 10 ^3/uL (0-0.2); Basophils % (auto) 1.2 % (0.0-2.0); Eosinophils # (auto) 0.2 10 ^3/uL (0-0.8); Hematocrit 42.8 % (41.0-53.0); Hemoglobin 14.2 g/dL (13.5-17.5); Lymphocytes # (auto) 1.4 10 ^3/uL (0.4-5.4); Lymphocytes % (auto) 23.9 % (10.0-50.0); Mean Corpuscular Hemoglobin 28.4 pg (28.0-32.0); Mean Corpuscular Hgb Conc. 33.1 g/dL (32.0-36.0); Mean Corpuscular Volume 85.8 fL (80.0-100.0); Monocytes # (auto) 0.3 10 ^3/uL (0-1.3); Monocytes % (auto) 5.5 % (0.0-12.0); Neutrophils % (auto) 65.4 % (37.0-80.0); Nucleated Red Blood Cells % 0.1 %; Platelet Count (auto) 237 10^3/uL (140-450); Red Blood Cells 4.99 10^6/uL (4.5-5.90); Red Cell Distribution Width 14.4 % (11.8-14.3)
[2020-06-01 14:48] LABS: Albumin 3.7 g/dL (3.4-5.0); Calcium 9.2 mg/dL (8.5-10.1)
[2020-06-01 14:53] LABS: BUN/Creatinine Ratio 10.9; Bilirubin, Total 0.3 mg/dL (0.2-1.0); Total Protein 7.8 g/dL (6.4-8.2)
== END | disposition home or self-care (01) ==
LOC: LAB 12:55
PROVIDERS: ATTEND Internal Medicine
DX: Z51.89 Encounter for other specified aftercare (principal); Z98.890 Other specified postprocedural states; Z90.49 Acquired absence of other specified parts of digestive tract
CPT/HCPCS: 36415; 80053; 80061; 82150; 85025; 85652

== ENCOUNTER → 2020-07-26 | Outpatient (CLI) | payer OTHER ==
[2020-07-26 09:30] VITALS: BP 127/74
== END | disposition home or self-care (01) ==
LOC: XY 08:06
PROVIDERS: ATTEND Internal Medicine
DX: Z01.810 Encounter for preprocedural cardiovascular examination (principal)
CPT/HCPCS: 78452; 93017; A9500

== ENCOUNTER → 2020-07-28 | Outpatient (CLI) | payer OTHER | END | disposition home or self-care (01) | LOC: XYW 09:48 | PROVIDERS: ATTEND Internal Medicine | DX: Z01.810 Encounter for preprocedural cardiovascular examination (principal) | CPT/HCPCS: 93306 ==

== ENCOUNTER → 2020-07-29 | Outpatient (CLI) | payer OTHER | END | disposition home or self-care (01) | LOC: LAB 09:14 | PROVIDERS: ATTEND Internal Medicine | DX: K80.50 Calculus of bile duct without cholangitis or cholecystitis without obstruction (principal) | CPT/HCPCS: 36415; 82565; 84520 ==

== ENCOUNTER → 2020-08-25 | Outpatient (CLI) | payer OTHER | END | disposition home or self-care (01) | LOC: LAB 09:58 | PROVIDERS: ATTEND Internal Medicine | DX: R07.89 Other chest pain (principal) | CPT/HCPCS: 36415; 85379 ==

== ENCOUNTER 2020-09-11 19:44 | Inpatient (IN) | payer OTHER ==
[~2020-09-11] VITALS: Ht 182.9 cm; Wt 108.6 kg
[2020-09-11] MEDS ORDERED: ASPirin 81 mg TAB PO ONE (20:00)
[2020-09-11] MEDS ORDERED: SODIUM CHLORIDE 0.9% 1,000 ML IVB ONE (20:00)
[2020-09-11] MEDS ORDERED: ONDANSETRON HCL 4 MG/2 ML VIAL IV ONE (20:30)
[2020-09-11] MEDS ORDERED: MORPHINE SULF INJ 2 MG/ML SYRINGE 1ML IV ONE (20:30)
[2020-09-11 20:50] LABS: Basophils # (auto) 0.1 10 ^3/uL (0-0.2); Basophils % (auto) 0.6 % (0.0-2.0); Eosinophils # (auto) 0.2 10 ^3/uL (0-0.8); Eosinophils % (auto) 2.8 % (0.0-7.0); Hematocrit 43.2 % (41.0-53.0); Hemoglobin 14.5 g/dL (13.5-17.5); Lymphocytes # (auto) 2.5 10 ^3/uL (0.4-5.4); Lymphocytes % (auto) 29.1 % (10.0-50.0); Mean Corpuscular Hemoglobin 28.4 pg (28.0-32.0); Mean Corpuscular Hgb Conc. 33.7 g/dL (32.0-36.0); Mean Corpuscular Volume 84.5 fL (80.0-100.0); Monocytes # (auto) 0.5 10 ^3/uL (0-1.3); Monocytes % (auto) 6.5 % (0.0-12.0); Neutrophils # (auto) 5.2 10 ^3/uL (1.6-8.6); Nucleated Red Blood Cells % 0.1 %; Platelet Count (auto) 231 10^3/uL (140-450); Red Blood Cells 5.11 10^6/uL (4.5-5.90); Red Cell Distribution Width 14.9 % (11.8-14.3); White Blood Cell 8.5 10^3/uL (4.4-10.8)
[2020-09-11 21:03] LABS: Albumin 3.4 g/dL (3.4-5.0); Anion Gap 7 (5-15); Calcium 8.7 mg/dL (8.5-10.1); Carbon Dioxide 21 mmol/L (21-32); Chloride 111 mmol/L (98-107); Glucose 101 mg/dL (74-106); INR 0.93 (0.9-1.15); Magnesium 2.5 mg/dL (1.6-2.6); Partial Thromboplastin Time 28.2 sec (23.0-31.2); Potassium 3.7 mmol/L (3.5-5.1); Sodium 139 mmol/L (136-145)
[2020-09-11 21:10] LABS: Alanine Aminotransferase 35 U/L (16-61); Alkaline Phosphatase 87 U/L (45-117); Aspartate Aminotransferase 19 U/L (15-37); Bilirubin, Total 0.3 mg/dL (0.2-1.0); GFR African American 120 mL/min; GFR Non-African American 99 mL/min; Total Protein 7.3 g/dL (6.4-8.2)
[2020-09-11 21:21] LABS: BUN/Creatinine Ratio 9.1; Blood Urea Nitrogen 8 mg/dL (7-18)
[2020-09-11] MEDS ORDERED: MORPHINE SULF INJ 2 MG/ML SYRINGE 1ML IV PRN (22:45)
[2020-09-11] MEDS ORDERED: DOCUSATE SOD 100 MG CAP PO PRN (22:45)
[2020-09-11] MEDS ORDERED: ACETAMINOPHEN 325 MG TAB PO PRN (22:45)
[2020-09-11] MEDS ORDERED: NITROGLYCERIN 0.4 MG SL TAB SL PRN (22:45)
[2020-09-11] MEDS ORDERED: HYDROcodone-ACET 5/325MG TAB PO PRN (22:45)
[2020-09-11] MEDS ORDERED: ONDANSETRON HCL 4 MG/2 ML VIAL IV PRN (22:45)
[2020-09-11 23:42] VITALS: BP 141/84
--- NOTE | 2020-09-11 23:45 | NUR ---
Telemetry admit from PAULETTE QUIROZ admitted to Telemetry unit SBAR not received. Patient oriented to Reanna mullins RN, unit, room, bed, and unit policies regarding patient care and visiting hours. Patient now on continuous telemetry monitoring, tele box #[id number] and telemetry reading on arrival to unit is sinus bradycardia in the 50s. Patient weighed by bedscale and encouraged to call if they need something. All questions and concerns addressed, patient verbalized understanding.
[2020-09-11] MEDS: SODIUM CHLORIDE 0.9% 1,000 ML IV SCH (23:50)
--- NOTE | 2020-09-12 00:30 | NUR ---
Patient has chronic back pain and current chest pain. Morphine to be given per protocol for pain level of patient. Will continue to monitor.
[2020-09-12] MEDS: MORPHINE SULFATE 4 MG/ML SYR/VIAL IV PRN ×4 (00:48→21:37)
--- NOTE | 2020-09-12 00:57 | NUR ---
Patient states that he gets epidural shots for his back pain. Patient states that he is not scheduled but that last epidural shot he received was two weeks ago, and his next one was going to be next week.
[2020-09-12 02:41] LABS: Alanine Aminotransferase 33 U/L (16-61); Albumin 3.1 g/dL (3.4-5.0); Anion Gap 7 (5-15); Aspartate Aminotransferase 24 U/L (15-37); BUN/Creatinine Ratio 7.5; Blood Urea Nitrogen 8 mg/dL (7-18); Calcium 8.6 mg/dL (8.5-10.1); Carbon Dioxide 24 mmol/L (21-32); Chloride 110 mmol/L (98-107); GFR African American 96 mL/min; GFR Non-African American 79 mL/min; Glucose 147 mg/dL (74-106); Potassium 3.9 mmol/L (3.5-5.1); Sodium 141 mmol/L (136-145)
[2020-09-12 02:46] LABS: Alkaline Phosphatase 82 U/L (45-117); Bilirubin, Total 0.3 mg/dL (0.2-1.0); Total Protein 6.8 g/dL (6.4-8.2)
[2020-09-12] MEDS ORDERED: OMEP20TA PO (03:05)
[2020-09-12] MEDS ORDERED: TRAM50TA2 PO (03:05)
[2020-09-12 05:27] VITALS: BP 113/72
--- NOTE | 2020-09-12 07:25 | NUR ---
Opening Shift Note Assumed care of patient, awake and alert. No S/S of distress/SOB. Patient reports pain in his chest area and left arm. Patient is asymptomatic at this time. Instructed on POC and to call for assist PRN. Patient verbalized understanding. Bed is in lowest position and the call light is within reach of the patient. Will continue to monitor for changes Q1hr and PRN.
[2020-09-12 08:34] LABS: Basophils # (auto) 0.1 10 ^3/uL (0-0.2); Basophils % (auto) 0.7 % (0.0-2.0); Eosinophils # (auto) 0.2 10 ^3/uL (0-0.8); Eosinophils % (auto) 3.1 % (0.0-7.0); Hematocrit 41.2 % (41.0-53.0); Hemoglobin 13.4 g/dL (13.5-17.5); Lymphocytes # (auto) 2.8 10 ^3/uL (0.4-5.4); Lymphocytes % (auto) 38.4 % (10.0-50.0); Mean Corpuscular Hemoglobin 27.5 pg (28.0-32.0); Mean Corpuscular Hgb Conc. 32.6 g/dL (32.0-36.0); Mean Corpuscular Volume 84.3 fL (80.0-100.0); Monocytes # (auto) 0.5 10 ^3/uL (0-1.3); Neutrophils # (auto) 3.7 10 ^3/uL (1.6-8.6); Neutrophils % (auto) 50.8 % (37.0-80.0); Nucleated Red Blood Cells % 0.2 %; Platelet Count (auto) 207 10^3/uL (140-450); Red Blood Cells 4.89 10^6/uL (4.5-5.90); Red Cell Distribution Width 15.1 % (11.8-14.3); White Blood Cell 7.3 10^3/uL (4.4-10.8)
[2020-09-12 08:51] LABS: Albumin 3.3 g/dL (3.4-5.0); Calcium 8.4 mg/dL (8.5-10.1); Potassium 3.7 mmol/L (3.5-5.1)
[2020-09-12 08:55] LABS: Bilirubin, Total 0.3 mg/dL (0.2-1.0); Total Protein 6.9 g/dL (6.4-8.2)
[2020-09-12 09:00] VITALS: BP 111/64
[2020-09-12 09:07] LABS: Cholesterol 230 mg/dL (< 200); HDL Cholesterol 37 mg/dL (40-59); LDL Cholesterol 160 mg/dL (< 100); Triglycerides 284 mg/dL (< 150)
[2020-09-12] MEDS: ENOXAPARIN SOD 40 MG/0.4 ML SYRINGE SC SCH (09:51)
[2020-09-12] MEDS: ASPirin 81 mg TAB PO SCH (09:51)
[2020-09-12] MEDS ORDERED: PANTOPRAZOLE 40 MG/10 ML VIAL INJ IV SCH (10:00)
--- NOTE | 2020-09-12 11:05 | NUR ---
Dr. Lopez at bedside Dr. Lopez at bedside discussing the POC with the patient. Patient verbalized understanding and all questions and concerns were answered at this time. Orders given and carried out appropriately.
[2020-09-12 13:00] VITALS: BP 108/67
--- NOTE | 2020-09-12 14:00 | NUR ---
Dr. Bryan at bedside Dr. Bryan at bedside discussing the POC with the patient. Patient verbalized understanding. Orders given and carried out accordingly.
[2020-09-12 14:01] LABS: Alcohol, Urine < 3.0 mg/dL (0-10); Amphetamine Screen, Urine NEGATIVE (NEGATIVE); Barbiturate Scree,Urine NEGATIVE (NEGATIVE); Benzodiazephine Screen, Urine NEGATIVE (NEGATIVE); Cannabinoid Screen, Urine NEGATIVE (NEGATIVE); Cocaine Screen, Urine NEGATIVE (NEGATIVE); Opiate Scree,Urine POSITIVE (NEGATIVE); Phencyclidine Screen, Urine NEGATIVE (NEGATIVE)
[2020-09-12] MEDS: LIDOCAINE 5% TOPICAL PATCH TOP SCH (14:09)
--- NOTE | 2020-09-12 15:10 | NUR ---
Dr. Funes rounding Dr. Funes at bedside discussing the POC with the patient including a left heart cath scheduled for tomorrow. Patient verbalized understanding. Orders were given and carried out accordingly.
[2020-09-12] MEDS: SODIUM CHLORIDE 0.9% 1,000 ML IV SCH (16:06)
[2020-09-12 16:52] VITALS: BP_SYST 112; BP_SYST 113; BP_DIAS 72; BP_DIAS 76
[2020-09-12] MEDS: SUCRALFATE 1 GM/10 ML ORAL SUSP PO SCH ×2 (17:06→21:23)
--- NOTE | 2020-09-12 19:30 | NUR ---
OPENING NOTE Received report from day shift RN. Patient is A&O X's 4 with no s/s of distress and report chronic back and RUQ abdominal pain. Patient rates pain at a 6. Educated patient on POC/pain management/ and to use call light when in need of assistance. Patient verbalized understanding. Bed is in lowest/locked position with side rails up X's 2 and call light is within reach of patient. Patient will be NPO at midnight for heart cath. Patient verbalized understanding. Will continue care.
[2020-09-12] MEDS: PANTOPRAZOLE 40 MG TAB PO SCH (21:23)
[2020-09-12 21:40] VITALS: BP 115/61
[2020-09-12] MEDS ORDERED: ATORVASTATIN 20 MG TAB PO SCH ×2 (22:00)
--- NOTE | 2020-09-13 | NUR ---
PATIENT NPO PATIENT AWARE NOT TO EAT/DRINK ANYTHING AT THIS TIME
[2020-09-13] MEDS: MORPHINE SULFATE 4 MG/ML SYR/VIAL IV PRN ×2 (04:08→12:16)
[2020-09-13 04:41] VITALS: BP 113/71
[2020-09-13] MEDS: SUCRALFATE 1 GM/10 ML ORAL SUSP PO SCH ×3 (06:26→17:05)
--- NOTE | 2020-09-13 07:35 | NUR ---
Opening Shift Note Assumed care of patient, awake and alert. No S/S of distress/SOB or pain. Instructed on POC and to call for assist PRN. Bed locked in lowest position, side rails up x2, call light within reach. Safety precautions in place. Will continue to monitor for changes Q1hr and PRN
[2020-09-13] MEDS: SODIUM CHLORIDE 0.9% 1,000 ML IV SCH (08:05)
[2020-09-13 08:39] VITALS: BP 104/69
--- NOTE | 2020-09-13 09:04 | NUR ---
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
[2020-09-13] MEDS: LIDOCAINE 5% TOPICAL PATCH TOP SCH (10:00)
[2020-09-13] MEDS: ENOXAPARIN SOD 40 MG/0.4 ML SYRINGE SC SCH (10:00)
[2020-09-13] MEDS: PANTOPRAZOLE 40 MG TAB PO SCH (10:00)
[2020-09-13] MEDS: ASPirin 81 mg TAB PO SCH (10:00)
[2020-09-13] MEDS ORDERED: IODIXANOL 320MG/ML 100ML BTL IV ONE (10:14)
[2020-09-13] MEDS ORDERED: LIDOCAINE 2%HCL (LOCAL ANESTH.) INJ 20ML MDV ONE (10:14)
[2020-09-13] MEDS ORDERED: ANGIOMAX 250 MG VIAL IV ONE (10:17)
[2020-09-13] MEDS ORDERED: HEPARIN SODIUM (PORCINE) 5000 UNITS/ML 1ML VIAL ONE (10:17)
[2020-09-13] MEDS ORDERED: SODIUM CHL 0.9% 0 ML ONE (10:18)
[2020-09-13] MEDS ORDERED: MIDAZOLAM HCL 1MG/1ML-2 ML VIAL ONE (10:18)
[2020-09-13] MEDS ORDERED: VERAPAMIL 2.5MG/ML INJ 2ML VIAL IV ONE (10:18)
[2020-09-13] MEDS ORDERED: fentaNYL CITRATE 100 MCG/2 ML VL ONE (10:18)
--- NOTE | 2020-09-13 10:58 | NUR ---
Patient brought to recovery via bed, report received from SALMA Benoit and SALMA Linder. Pt is AO x 4, NAD noted at this time. Left radial site is benign, no s/s of bleeding or hematoma formation noted. Vasc Band in place, positive circulation, movement and sensation noted to BUE. Patient verbalized understanding to post-procedure care.
--- NOTE | 2020-09-13 11:13 | NUR ---
Patient is resting in bed with eyes closed. Breaths even and unlabored. Patient arousable to voice. VS WNL of baseline. Left radial site remains unchanged.
--- NOTE | 2020-09-13 11:19 | NUR ---
Report given to SALMA Richards.
--- NOTE | 2020-09-13 11:30 | NUR ---
Patient taken to telemetry unit via bed, bankruptcy judge in place. NAD noted upon transport. Primary RNSusie present at bedside to witness left radial site benign, no s/s of bleeding or hematoma formation. Bed is set in lowest locked position with side rails up x 2, call light is within reach and bed alarm set on for safety. Care endorsed to SALMA Richards.
--- NOTE | 2020-09-13 11:41 | NUR ---
PATIENT BACK TO ROOM FOLLOWING HEART CATH REPORT RECEIVED FROM SALMA LEON. NO DISTRESS NOTED. LEFT WRIST VASCBAND DEVICE IN PLACE, NO SIGNS OF BLEEDING OR SWELLING. PATIENT INSTRUCTED TO CALL FOR ASSISTANCE NEEDED, AND TO NOTIFY RN IF ANY BLEEDING, SWELLING, OR PAIN IS NOTED. CALL LIGHT WITHIN REACH. WILL BEGIN TO DEFLATE AT 1220. WILL CONTINUE TO MONITOR PRN.
--- NOTE | 2020-09-13 12:00 | NUR ---
SPOKE WITH MD FIERRO MADE MD AWARE PATIENT RETURNED TO ROOM. PER MD HOLD 10 O'CLOCK MEDICATIONS: LOVENOX, ASPIRIN, LIDOCAINE PATCH. WILL FOLLOW THROUGH WITH ORDERS.
[2020-09-13 13:00] VITALS: BP 108/63
--- NOTE | 2020-09-13 13:08 | NUR ---
VASC BAND REMOVAL VASC BAND REMOVED PER INSTRUCTIONS, SEE HARD CHART. PATIENT TOLERATED WELL, NO BLEEDING NOTED. GAUZE AND TEGADERM APPLIED. PATIENT INSTRUCTED TO CALL IF BLEEDING IS NOTED. PATIENT EDUCATED ON VASC BAND REMOVAL PER INSTRUCTIONS, SEE HARD CHART. PATIENT VERBALIZED UNDERSTANDING OF EDUCATION.
[2020-09-13 17:00] VITALS: BP 111/71
[2020-09-13 17:38] VITALS: BP 111/71
--- NOTE | 2020-09-13 18:10 | NUR ---
Discharge home Discharge instructions given as ordered. Encourage to follow up with PMD as instructed. All questions and concerns addressed. Patient verbalized understanding. Medication reconciliation form completed and copy given to patient. IV removed with catheter intact, pressure dressing applied. Telemetry unit returned to ICU. Patient taken to vehicle via ambulation with all personal belongings, accompanied by staff. No distress noted at time of departure.
--- NOTE | 2020-09-13 18:20 | NUR ---
Discharge home Discharge instructions given as ordered. Encourage to follow up with PMD as instructed. All questions and concerns addressed. Patient verbalized understanding. Medication reconciliation form completed and copy given to patient. IV removed with catheter intact, pressure dressing applied. Telemetry unit returned to ICU. Patient taken to vehicle via wheelchair with all personal belongings, accompanied by staff. No distress noted at time of departure. Addendum: 09/13/20 at 1837 by Susie Martin RN incorrect patient
== END 2020-09-13 18:10 | disposition home or self-care (01) | DRG 287 ==
LOC: EDBD 19:44 → ER 19:46 → TELE 19:47 → TELE-WESTW 23:42
PROVIDERS: ADMIT Nurse Practitioner Family; ATTEND Internal Medicine
PROC: 4A023N7 Measurement of Cardiac Sampling and Pressure, Left Heart, Percutaneous Approach (ICD-10-PCS; principal; 2020-09-13)
PROC: B2151ZZ Fluoroscopy of Left Heart using Low Osmolar Contrast (ICD-10-PCS; 2020-09-13)
PROC: B2111ZZ Fluoroscopy of Multiple Coronary Arteries using Low Osmolar Contrast (ICD-10-PCS; 2020-09-13)
DX: I25.110 Atherosclerotic heart disease of native coronary artery with unstable angina pectoris (principal); I24.9 Acute ischemic heart disease, unspecified; M54.42 Lumbago with sciatica, left side; G89.29 Other chronic pain; K21.9 Gastro-esophageal reflux disease without esophagitis; K29.70 Gastritis, unspecified, without bleeding; E78.00 Pure hypercholesterolemia, unspecified; E66.9 Obesity, unspecified; Z68.32 Body mass index [BMI] 32.0-32.9, adult; E78.5 Hyperlipidemia, unspecified; R73.03 Prediabetes; Z80.1 Family history of malignant neoplasm of trachea, bronchus and lung; Z82.0 Family history of epilepsy and other diseases of the nervous system; Z82.3 Family history of stroke; Z82.49 Family history of ischemic heart disease and other diseases of the circulatory system; Z82.5 Family history of asthma and other chronic lower respiratory diseases; Z83.3 Family history of diabetes mellitus; Z90.49 Acquired absence of other specified parts of digestive tract; Z87.891 Personal history of nicotine dependence
CPT/HCPCS: 36415; 70450; 71045; 80053; 80061; 80307; 83735; 83880; 84443; 84484; 85025; 85379; 85610; 85652; 85730; 86850; 86900; 86901; 96361; 96374; 96375; 99152; C9113; G0378; J2250; J2405; Q9967

== ENCOUNTER → 2020-12-14 | Outpatient (CLI) | payer OTHER ==
[~2020-12-14] MED LIST changes: -IBU600T PO; +TRAM50TA2 PO
== END | disposition home or self-care (01) ==
LOC: LAB 14:00
PROVIDERS: ATTEND Physician Assistant
DX: Z20.822 Contact with and (suspected) exposure to COVID-19 (principal)
CPT/HCPCS: C9803; U0003

== ENCOUNTER 2021-03-31 16:27 | Observation (INO) | payer OTHER ==
[~2021-03-31] VITALS: Ht 182.9 cm; Wt 105.6 kg
[2021-03-31 17:50] VITALS: BP 128/77
[2021-03-31] MEDS ORDERED: TEMAZEPAM 15 MG CAP PO PRN (18:15)
[2021-03-31] MEDS ORDERED: ACETAMINOPHEN 325 MG TAB PO PRN (18:15)
[2021-03-31] MEDS ORDERED: DOCUSATE SOD 100 MG CAP PO PRN (18:15)
[2021-03-31] MEDS ORDERED: DEXTROSE (50%) 50ML SYRG IV PRN (18:15)
[2021-03-31] MEDS ORDERED: METOCLOPRAMIDE HCL 5MG/ml INJ 2ml VIAL IV PRN (18:15)
[2021-03-31] MEDS ORDERED: ALUM & MAG HYDROX-SIMETH LIQ(MAALOX) 30 ML PO PRN (18:15)
[2021-03-31 18:29] VITALS: BP 128/77
[2021-03-31] MEDS ORDERED: LISINOPRIL 5 MG TAB PO ONE (18:30)
[2021-03-31] MEDS: HYDROcodone-ACET 5/325MG TAB PO PRN (19:02)
[2021-03-31] MEDS ORDERED: ATOR10TA PO (19:46)
[2021-03-31] MEDS ORDERED: GABA300C10 PO (19:46)
[2021-03-31] MEDS: ATORVASTATIN 20 MG TAB PO SCH (21:31)
[2021-03-31] MEDS: InsuLIN REG 1unit/0.01ml Soln (100units/ml) SC SCH (21:32)
[2021-03-31 22:00] VITALS: BP 122/77
[2021-03-31] MEDS: ACCU-CHEK COMFORT CURVE STRIP VI SCH (22:26)
[2021-03-31] MEDS: SODIUM CHLOR 0.9% PF (SALINE LOCK) 10ML VIAL/SYR IV SCH (22:27)
[2021-04-01 01:12] LABS: INR 0.99 (0.9-1.15)
[2021-04-01 05:00] VITALS: BP 101/57
[2021-04-01] MEDS: ACCU-CHEK COMFORT CURVE STRIP VI SCH ×4 (06:14→21:10)
[2021-04-01] MEDS: InsuLIN REG 1unit/0.01ml Soln (100units/ml) SC SCH ×4 (06:14→21:10)
[2021-04-01] MEDS: SODIUM CHLOR 0.9% PF (SALINE LOCK) 10ML VIAL/SYR IV SCH ×3 (06:15→21:14)
[2021-04-01 07:30] LABS: Urine Bacteria NONE SEEN /hpf (None Seen); Urine Blood Negative /uL (Negative); Urine Mucus FEW (None Seen); Urine Specific Gravity 1.023 (1.001-1.035); Urine WBC 1 /hpf (0 - 3)
[2021-04-01 07:50] LABS: Alcohol, Urine < 3.0 mg/dL (0-10); Amphetamine Screen, Urine NEGATIVE (NEGATIVE); Barbiturate Scree,Urine NEGATIVE (NEGATIVE); Benzodiazephine Screen, Urine NEGATIVE (NEGATIVE); Cannabinoid Screen, Urine NEGATIVE (NEGATIVE); Cocaine Screen, Urine NEGATIVE (NEGATIVE); Opiate Scree,Urine POSITIVE (NEGATIVE); Phencyclidine Screen, Urine NEGATIVE (NEGATIVE)
[2021-04-01 09:00] VITALS: BP 128/70
[2021-04-01 09:45] VITALS: BP 115/77
[2021-04-01] MEDS: HYDROmorphone HCL 2 MG/ML VL IV PRN ×3 (09:50→22:13)
[2021-04-01] MEDS: LISINOPRIL 5 MG TAB PO SCH (09:53)
[2021-04-01] MEDS ORDERED: ASPirin 81 mg TAB PO SCH (10:00)
[2021-04-01 11:32] LABS: Basophils # (auto) 0.1 10 ^3/uL (0-0.2); Basophils % (auto) 0.7 % (0.0-2.0); Eosinophils # (auto) 0 10 ^3/uL (0-0.8); Eosinophils % (auto) 0.4 % (0.0-7.0); Hematocrit 42.1 % (41.0-53.0); Lymphocytes # (auto) 3.3 10 ^3/uL (0.4-5.4); Lymphocytes % (auto) 29.3 % (10.0-50.0); Mean Corpuscular Hemoglobin 28.1 pg (28.0-32.0); Mean Corpuscular Hgb Conc. 33.2 g/dL (32.0-36.0); Mean Corpuscular Volume 84.7 fL (80.0-100.0); Monocytes # (auto) 0.7 10 ^3/uL (0-1.3); Monocytes % (auto) 6.1 % (0.0-12.0); Neutrophils # (auto) 7.2 10 ^3/uL (1.6-8.6); Neutrophils % (auto) 63.5 % (37.0-80.0); Nucleated Red Blood Cells % 0.1 %; Red Blood Cells 4.97 10^6/uL (4.5-5.90); Red Cell Distribution Width 15.4 % (11.8-14.3); White Blood Cell 11.3 10^3/uL (4.4-10.8)
[2021-04-01 11:46] LABS: Potassium 3.5 mmol/L (3.5-5.1)
[2021-04-01 11:54] LABS: Albumin 3.4 g/dL (3.4-5.0); BUN/Creatinine Ratio 17.2; Bilirubin, Total 0.4 mg/dL (0.2-1.0); Calcium 8.7 mg/dL (8.5-10.1)
[2021-04-01 13:00] VITALS: BP 103/68
[2021-04-01] MEDS ORDERED: LIDOCAINE 2%HCL (LOCAL ANESTH.) INJ 20ML MDV ONE (13:08)
[2021-04-01 15:18] LABS: Protein, CSF 51.4 mg/dL (15-45)
[2021-04-01 16:55] VITALS: BP 103/66
[2021-04-01 17:48] LABS: CSF White Blood Cells 4 CUMM (0-5)
[2021-04-01] MEDS: ATORVASTATIN 20 MG TAB PO SCH (21:11)
[2021-04-01 22:00] VITALS: BP 113/67
[2021-04-02] MEDS: HYDROmorphone HCL 2 MG/ML VL IV PRN (03:19)
[2021-04-02 05:00] VITALS: BP 89/59
[2021-04-02] MEDS: SODIUM CHLOR 0.9% PF (SALINE LOCK) 10ML VIAL/SYR IV SCH (05:13)
[2021-04-02] MEDS: InsuLIN REG 1unit/0.01ml Soln (100units/ml) SC SCH ×2 (06:15→11:30)
[2021-04-02] MEDS: ACCU-CHEK COMFORT CURVE STRIP VI SCH ×2 (06:15→11:21)
[2021-04-02 07:54] VITALS: BP 98/59
[2021-04-02 08:00] VITALS: BP 98/59
[2021-04-02 09:00] VITALS: BP 98/59
[2021-04-02 09:45] VITALS: BP 104/68
[2021-04-02] MEDS: LISINOPRIL 5 MG TAB PO SCH (10:00)
[2021-04-02] MEDS: HYDROcodone-ACET 5/325MG TAB PO PRN (11:21)
== END 2021-04-02 12:20 | disposition home health service (06) ==
LOC: TELE-EAST 17:20 → INTOOBSV 17:20
PROVIDERS: ADMIT Internal Medicine; ATTEND Internal Medicine
DX: R51.9 Headache, unspecified (principal); R53.1 Weakness; E11.9 Type 2 diabetes mellitus without complications; I10 Essential (primary) hypertension; G89.4 Chronic pain syndrome; E78.5 Hyperlipidemia, unspecified; K21.9 Gastro-esophageal reflux disease without esophagitis; E66.9 Obesity, unspecified; E55.9 Vitamin D deficiency, unspecified; Z79.899 Other long term (current) drug therapy
CPT/HCPCS: 36415; 62272; 80053; 80061; 80307; 81001; 82043; 82306; 82945; 82962; 83036; 84157; 85025; 85610; 87081; 89051; 93306; 93886; 96372; 96374; 96376; G0378; J1170; J1815

== ENCOUNTER 2021-04-05 21:02 | Emergency (ER) | payer OTHER ==
[~2021-04-05] VITALS: Ht 182.9 cm; Wt 102.1 kg
[~2021-04-05 21:02] MED LIST changes: +ATOR10TA PO; +GABA300C10 PO
[2021-04-05 21:25] VITALS: BP 107/80
[2021-04-05 23:16] LABS: Basophils # (auto) 0.1 10 ^3/uL (0-0.2); Basophils % (auto) 0.5 % (0.0-2.0); Eosinophils # (auto) 0.2 10 ^3/uL (0-0.8); Eosinophils % (auto) 1.7 % (0.0-7.0); Hematocrit 44.6 % (41.0-53.0); Lymphocytes # (auto) 3.1 10 ^3/uL (0.4-5.4); Lymphocytes % (auto) 27.5 % (10.0-50.0); Mean Corpuscular Hemoglobin 28.4 pg (28.0-32.0); Mean Corpuscular Hgb Conc. 33.6 g/dL (32.0-36.0); Mean Corpuscular Volume 84.5 fL (80.0-100.0); Monocytes # (auto) 0.6 10 ^3/uL (0-1.3); Monocytes % (auto) 5.1 % (0.0-12.0); Neutrophils # (auto) 7.4 10 ^3/uL (1.6-8.6); Neutrophils % (auto) 65.2 % (37.0-80.0); Nucleated Red Blood Cells % 0.1 %; Red Blood Cells 5.27 10^6/uL (4.5-5.90); White Blood Cell 11.3 10^3/uL (4.4-10.8)
[2021-04-05 23:35] LABS: Albumin 3.9 g/dL (3.4-5.0); Potassium 3.5 mmol/L (3.5-5.1)
[2021-04-05 23:39] LABS: Bilirubin, Total 0.6 mg/dL (0.2-1.0); Total Protein 8.1 g/dL (6.4-8.2)
[2021-04-05 23:43] LABS: INR 1.01 (0.9-1.15); Partial Thromboplastin Time 28.5 sec (23.0-31.2)
== END 2021-04-06 01:57 | disposition left against medical advice (07) ==
LOC: ER 21:09
DX: R51.9 Headache, unspecified (principal); Z53.21 Procedure and treatment not carried out due to patient leaving prior to being seen by health care provider
CPT/HCPCS: 36415; 70450; 80053; 85025; 85610; 85730

== ENCOUNTER → 2021-06-29 | Outpatient (CLI) | payer OTHER | END | disposition home or self-care (01) | LOC: LAB 06:50 | PROVIDERS: ATTEND Internal Medicine | DX: E11.9 Type 2 diabetes mellitus without complications (principal); R25.1 Tremor, unspecified | CPT/HCPCS: 36415; 82390; 83036; 83540; 84439; 84443 ==

== ENCOUNTER 2022-01-13 18:58 | Emergency (ER) | payer OTHER ==
[~2022-01-13] VITALS: Ht 182.9 cm; Wt 55.8 kg
[2022-01-13 19:51] LABS: Basophils # (auto) 0.4 10 ^3/uL (0-0.2); Basophils % (auto) 5.5 % (0.0-2.0); Eosinophils # (auto) 0.3 10 ^3/uL (0-0.8); Eosinophils % (auto) 3.4 % (0.0-7.0); Hematocrit 43.2 % (41.0-53.0); Hemoglobin 15.1 g/dL (13.5-17.5); Lymphocytes # (auto) 1.3 10 ^3/uL (0.4-5.4); Lymphocytes % (auto) 16.5 % (10.0-50.0); Mean Corpuscular Hemoglobin 28.8 pg (28.0-32.0); Mean Corpuscular Hgb Conc. 34.9 g/dL (32.0-36.0); Mean Corpuscular Volume 82.4 fL (80.0-100.0); Monocytes # (auto) 0.3 10 ^3/uL (0-1.3); Monocytes % (auto) 3.5 % (0.0-12.0); Neutrophils # (auto) 5.6 10 ^3/uL (1.6-8.6); Neutrophils % (auto) 71.1 % (37.0-80.0); Red Blood Cells 5.25 10^6/uL (4.5-5.90); Red Cell Distribution Width 14.8 % (11.8-14.3); White Blood Cell 7.8 10^3/uL (4.4-10.8)
[2022-01-13 19:58] LABS: Potassium 3.4 mmol/L (3.5-5.1)
[2022-01-13 20:04] LABS: Albumin 3.9 g/dL (3.4-5.0); BUN/Creatinine Ratio 8.6; Bilirubin, Total 0.4 mg/dL (0.2-1.0); Calcium 9.2 mg/dL (8.5-10.1); Total Protein 7.6 g/dL (6.4-8.2)
[2022-01-13] MEDS ORDERED: MORPHINE SULFATE 4 MG/ML SYR/VIAL IV ONE (20:15)
[2022-01-13] MEDS ORDERED: SODIUM CHLORIDE 0.9% 500 ML IVB ONE (20:15)
[2022-01-13] MEDS ORDERED: ONDANSETRON HCL 4 MG/2 ML VIAL IV ONE (20:15)
[2022-01-13 21:55] VITALS: BP 145/64
[2022-01-13 22:08] LABS: Urine Bacteria NONE SEEN /hpf (None Seen); Urine Blood Negative /uL (Negative); Urine Mucus FEW (None Seen); Urine Specific Gravity 1.025 (1.001-1.035); Urine WBC 1 /hpf (0 - 3)
[2022-01-14] MEDS ORDERED: HYDROcodone-ACET 10/325MG TAB PO ONE (01:00)
== END 2022-01-14 01:04 | disposition home or self-care (01) ==
LOC: ER 19:00
DX: R10.9 Unspecified abdominal pain (principal); R11.2 Nausea with vomiting, unspecified; R19.7 Diarrhea, unspecified; E11.9 Type 2 diabetes mellitus without complications; Z90.49 Acquired absence of other specified parts of digestive tract; Z86.73 Personal history of transient ischemic attack (TIA), and cerebral infarction without residual deficits
CPT/HCPCS: 36415; 74176; 80053; 81001; 83690; 85025; 93005; 96361; 96374; 96375; 99285; J2270; J2405; J7030

== ENCOUNTER 2022-01-18 19:37 | Emergency (ER) | payer OTHER ==
[~2022-01-18] VITALS: Ht 182.9 cm; Wt 102.1 kg
[2022-01-18 20:29] LABS: Basophils # (auto) 0.1 10 ^3/uL (0-0.2); Basophils % (auto) 0.8 % (0.0-2.0); Eosinophils # (auto) 0.2 10 ^3/uL (0-0.8); Hematocrit 41.8 % (41.0-53.0); Hemoglobin 14.3 g/dL (13.5-17.5); Lymphocytes # (auto) 1.8 10 ^3/uL (0.4-5.4); Lymphocytes % (auto) 20.2 % (10.0-50.0); Mean Corpuscular Hemoglobin 28.5 pg (28.0-32.0); Mean Corpuscular Hgb Conc. 34.1 g/dL (32.0-36.0); Mean Corpuscular Volume 83.7 fL (80.0-100.0); Monocytes # (auto) 0.4 10 ^3/uL (0-1.3); Monocytes % (auto) 4.8 % (0.0-12.0); Neutrophils # (auto) 6.3 10 ^3/uL (1.6-8.6); Neutrophils % (auto) 72.2 % (37.0-80.0); Nucleated Red Blood Cells % 0.1 %; Red Cell Distribution Width 14.9 % (11.8-14.3); White Blood Cell 8.7 10^3/uL (4.4-10.8)
[2022-01-18 20:42] LABS: Albumin 3.9 g/dL (3.4-5.0); Calcium 9.3 mg/dL (8.5-10.1); Potassium 3.4 mmol/L (3.5-5.1)
[2022-01-18 20:45] LABS: BUN/Creatinine Ratio 10.8; Bilirubin, Total 0.4 mg/dL (0.2-1.0); Total Protein 7.5 g/dL (6.4-8.2)
[2022-01-18 21:32] LABS: Urine Amorphous Crystal FEW /hpf (None Seen); Urine Bacteria NONE SEEN /hpf (None Seen); Urine Blood Negative /uL (Negative); Urine Specific Gravity 1.025 (1.001-1.035); Urine WBC 1 /hpf (0 - 3)
[2022-01-19] MEDS ORDERED: KETOROLAC TROMETH 30 MG/ML 1ML VIAL IM ONE (01:00)
[2022-01-19] MEDS ORDERED: ONDA-144 PO (04:05)
[2022-01-19 04:26] VITALS: BP 132/84
== END 2022-01-19 04:32 | disposition home or self-care (01) ==
LOC: ER 19:38
DX: R10.11 Right upper quadrant pain (principal); R11.2 Nausea with vomiting, unspecified; R19.7 Diarrhea, unspecified; E11.9 Type 2 diabetes mellitus without complications; E78.5 Hyperlipidemia, unspecified; Z86.73 Personal history of transient ischemic attack (TIA), and cerebral infarction without residual deficits; Z90.49 Acquired absence of other specified parts of digestive tract
CPT/HCPCS: 36415; 73620; 80053; 81001; 83690; 84484; 85025; 85379; 93005

== ENCOUNTER 2022-01-27 15:35 | Inpatient (IN) | payer OTHER ==
[~2022-01-27] VITALS: Ht 182.9 cm; Wt 101.8 kg
[~2022-01-27 15:35] MED LIST changes: +ONDA-144 PO
[2022-01-27] MEDS ORDERED: MORPHINE SULFATE 4 MG/ML SYR/VIAL IV ONE (16:00)
[2022-01-27] MEDS ORDERED: ONDANSETRON HCL 4 MG/2 ML VIAL IV ONE (16:00)
[2022-01-27 16:54] LABS: Basophils # (auto) 0.1 10 ^3/uL (0-0.2); Eosinophils # (auto) 0 10 ^3/uL (0-0.8); Eosinophils % (auto) 0.7 % (0.0-7.0); Hematocrit 40.6 % (41.0-53.0); Hemoglobin 13.4 g/dL (13.5-17.5); Lymphocytes # (auto) 2.1 10 ^3/uL (0.4-5.4); Lymphocytes % (auto) 35.6 % (10.0-50.0); Mean Corpuscular Hemoglobin 27.8 pg (28.0-32.0); Mean Corpuscular Hgb Conc. 33.1 g/dL (32.0-36.0); Mean Corpuscular Volume 83.9 fL (80.0-100.0); Monocytes # (auto) 0.5 10 ^3/uL (0-1.3); Monocytes % (auto) 7.9 % (0.0-12.0); Neutrophils # (auto) 3.3 10 ^3/uL (1.6-8.6); Neutrophils % (auto) 54.8 % (37.0-80.0); Nucleated Red Blood Cells % 0.1 %; Red Blood Cells 4.84 10^6/uL (4.5-5.90); Red Cell Distribution Width 14.8 % (11.8-14.3)
[2022-01-27 17:11] LABS: Albumin 3.4 g/dL (3.4-5.0); BUN/Creatinine Ratio 10.3; Calcium 8.8 mg/dL (8.5-10.1); Potassium 3.6 mmol/L (3.5-5.1)
[2022-01-27 17:14] LABS: Bilirubin, Total 0.2 mg/dL (0.2-1.0); Total Protein 6.8 g/dL (6.4-8.2)
[2022-01-27] MEDS ORDERED: ONDANSETRON HCL 4 MG/2 ML VIAL IV PRN (20:30)
[2022-01-27] MEDS ORDERED: KETOROLAC TROMETH 30 MG/ML 1ML VIAL IV PRN (20:30)
[2022-01-27] MEDS ORDERED: OMNIPAQUE ORAL SOLN 500ml 12mg/ml PO ONE (21:37)
[2022-01-27] MEDS ORDERED: IOHEXOL 300 MG/ML 100ML BOTTLE IJ ONE (21:45)
[2022-01-27] MEDS ORDERED: SOD CHL 0.45% 1,000 ML IV SCH (22:00)
[2022-01-27] MEDS ORDERED: DEXTROSE (50%) 50ML SYRG IV PRN (22:00)
[2022-01-27] MEDS: ATORVASTATIN 20 MG TAB PO SCH (22:00)
[2022-01-27] MEDS: SODIUM CHLOR 0.9% PF (SALINE LOCK) 10ML VIAL/SYR IV SCH (23:00)
[2022-01-28] MEDS: MORPHINE SULFATE 4 MG/ML SYR/VIAL IV PRN ×3 (00:03→22:04)
[2022-01-28 02:15] VITALS: BP 114/75
[2022-01-28] MEDS ORDERED: METF-370 PO (02:23)
[2022-01-28] MEDS ORDERED: ATOR40TA52 PO (02:23)
[2022-01-28 05:00] VITALS: BP_SYST 103; BP_SYST 128; BP_DIAS 60; BP_DIAS 75
[2022-01-28] MEDS: InsuLIN REG 1unit/0.01ml Soln (100units/ml) SC SCH ×5 (06:00→23:40)
[2022-01-28] MEDS: SODIUM CHLOR 0.9% PF (SALINE LOCK) 10ML VIAL/SYR IV SCH ×3 (06:14→22:00)
[2022-01-28] MEDS: ACCU-CHEK COMFORT CURVE STRIP VI SCH ×5 (06:14→23:45)
[2022-01-28 09:01] VITALS: BP 104/62
[2022-01-28] MEDS: PANTOPRAZOLE 40 MG TAB PO SCH ×2 (11:29→22:01)
[2022-01-28] MEDS ORDERED: LORazepam 2MG/ML-1ML VIAL IV PRN (12:00)
[2022-01-28 13:00] VITALS: BP_SYST 142; BP_SYST 94; BP_DIAS 53; BP_DIAS 83
[2022-01-28] MEDS: GABAPENTIN 300 MG CAP PO SCH ×2 (15:00→22:01)
[2022-01-28 16:37] VITALS: BP 98/60
[2022-01-28] MEDS: SUCRALFATE 1 GM/10 ML ORAL SUSP PO SCH ×2 (17:54→22:00)
[2022-01-28 21:52] VITALS: BP 106/68
[2022-01-28] MEDS: ATORVASTATIN 20 MG TAB PO SCH (22:01)
[2022-01-29] MEDS: MORPHINE SULFATE 4 MG/ML SYR/VIAL IV PRN ×5 (04:24→21:53)
[2022-01-29 05:07] VITALS: BP 96/65
[2022-01-29] MEDS: InsuLIN REG 1unit/0.01ml Soln (100units/ml) SC SCH ×3 (06:00→18:00)
[2022-01-29] MEDS: GABAPENTIN 300 MG CAP PO SCH ×3 (07:02→21:50)
[2022-01-29] MEDS: SODIUM CHLOR 0.9% PF (SALINE LOCK) 10ML VIAL/SYR IV SCH ×3 (07:02→21:50)
[2022-01-29] MEDS: ACCU-CHEK COMFORT CURVE STRIP VI SCH ×3 (07:02→18:23)
[2022-01-29] MEDS: SUCRALFATE 1 GM/10 ML ORAL SUSP PO SCH ×4 (07:03→21:50)
[2022-01-29] MEDS: PANTOPRAZOLE 40 MG TAB PO SCH ×2 (08:50→21:50)
[2022-01-29 08:58] VITALS: BP 96/62
[2022-01-29 13:00] VITALS: BP 98/66
[2022-01-29 16:46] VITALS: BP 104/68
[2022-01-29] MEDS: ATORVASTATIN 20 MG TAB PO SCH (21:50)
[2022-01-29 22:00] VITALS: BP 119/69
[2022-01-30] MEDS: ACCU-CHEK COMFORT CURVE STRIP VI SCH ×3 (00:12→12:00)
[2022-01-30 05:00] VITALS: BP 104/66
[2022-01-30] MEDS: GABAPENTIN 300 MG CAP PO SCH (05:44)
[2022-01-30] MEDS: SUCRALFATE 1 GM/10 ML ORAL SUSP PO SCH ×2 (05:44→11:30)
[2022-01-30] MEDS: InsuLIN REG 1unit/0.01ml Soln (100units/ml) SC SCH ×3 (05:53→12:00)
[2022-01-30] MEDS: SODIUM CHLOR 0.9% PF (SALINE LOCK) 10ML VIAL/SYR IV SCH (05:53)
[2022-01-30] MEDS: MORPHINE SULFATE 4 MG/ML SYR/VIAL IV PRN ×2 (05:57→11:42)
[2022-01-30 08:00] VITALS: BP 109/66
[2022-01-30 08:51] VITALS: BP 109/66
[2022-01-30] MEDS: PANTOPRAZOLE 40 MG TAB PO SCH (10:00)
[2022-01-30] MEDS ORDERED: SODIUM CHLORIDE LOCK 10 ML ONE ×2 (10:41→12:35)
[2022-01-30] MEDS ORDERED: fentaNYL CITRATE 100 MCG/2 ML VL ONE ×2 (10:42→12:36)
[2022-01-30] MEDS ORDERED: MIDAZOLAM HCL 5 MG/ML-1ML VIAL ONE ×2 (10:42→12:35)
[2022-01-30] MEDS ORDERED: diphenhdrAMINE HCL 50 MG/1 ML VL ONE ×2 (10:42→12:35)
[2022-01-30] MEDS ORDERED: LIDOCAINE VISCOUS 2% 15ML UD ONE ×2 (10:42→12:35)
[2022-01-30 13:00] VITALS: BP 119/66
[2022-01-30] MEDS ORDERED: PANT40T PO (14:09)
[2022-01-30] MEDS ORDERED: SUCR1SUS10 PO (14:10)
[2022-01-30 16:07] VITALS: BP 113/81
[2022-01-30 16:55] VITALS: BP 113/81
== END 2022-01-30 17:00 | disposition home or self-care (01) | DRG 392 ==
LOC: EDBD 15:35 → ER 15:35 → OVERFLOW 21:34 → CENTRAL 22:21
PROVIDERS: ADMIT Internal Medicine; ATTEND Internal Medicine
PROC: 0DB68ZX Excision of Stomach, Via Natural or Artificial Opening Endoscopic, Diagnostic (ICD-10-PCS; principal; 2022-01-30 12:43)
DX: K29.70 Gastritis, unspecified, without bleeding (principal); E11.9 Type 2 diabetes mellitus without complications; E78.5 Hyperlipidemia, unspecified; K29.80 Duodenitis without bleeding; K44.9 Diaphragmatic hernia without obstruction or gangrene; K21.9 Gastro-esophageal reflux disease without esophagitis; Z20.822 Contact with and (suspected) exposure to COVID-19; M54.50 Low back pain, unspecified; K76.0 Fatty (change of) liver, not elsewhere classified; N40.0 Benign prostatic hyperplasia without lower urinary tract symptoms; Z79.899 Other long term (current) drug therapy; Z86.73 Personal history of transient ischemic attack (TIA), and cerebral infarction without residual deficits; Z90.49 Acquired absence of other specified parts of digestive tract; Z83.3 Family history of diabetes mellitus; Z80.9 Family history of malignant neoplasm, unspecified; Z82.49 Family history of ischemic heart disease and other diseases of the circulatory system; Z82.3 Family history of stroke; Z72.89 Other problems related to lifestyle
CPT/HCPCS: 36415; 74177; 74181; 76705; 80053; 82150; 82962; 83690; 85025; 85610; 87426; 87493; 96361; 96374; 96375; G0378; J1885; J2250; J2405

== ENCOUNTER → 2022-04-17 | Outpatient (CLI) | payer OTHER ==
[~2022-04-17] MED LIST changes: -ATOR10TA PO; +ATOR40TA52 PO; -GABA100C9 PO; +METF-370 PO; +SUCR1SUS10 PO; -TRAM50TA2 PO
[2022-04-17 16:39] LABS: Basophils # (auto) 0.1 10 ^3/uL (0-0.2); Basophils % (auto) 1.8 % (0.0-2.0); Eosinophils # (auto) 0.3 10 ^3/uL (0-0.8); Eosinophils % (auto) 3.7 % (0.0-7.0); Hematocrit 42.5 % (41.0-53.0); Hemoglobin 14.4 g/dL (13.5-17.5); Lymphocytes # (auto) 1.7 10 ^3/uL (0.4-5.4); Lymphocytes % (auto) 23.3 % (10.0-50.0); Mean Corpuscular Hemoglobin 28.3 pg (28.0-32.0); Mean Corpuscular Hgb Conc. 33.9 g/dL (32.0-36.0); Mean Corpuscular Volume 83.4 fL (80.0-100.0); Monocytes # (auto) 0.4 10 ^3/uL (0-1.3); Neutrophils # (auto) 4.7 10 ^3/uL (1.6-8.6); Neutrophils % (auto) 65.2 % (37.0-80.0); Nucleated Red Blood Cells % 0.1 %; Red Cell Distribution Width 14.3 % (11.8-14.3); White Blood Cell 7.2 10^3/uL (4.4-10.8)
[2022-04-17 17:05] LABS: Albumin 3.5 g/dL (3.4-5.0); Calcium 9.2 mg/dL (8.5-10.1); Potassium 3.5 mmol/L (3.5-5.1)
[2022-04-17 17:09] LABS: BUN/Creatinine Ratio 8.4; Bilirubin, Total 0.4 mg/dL (0.2-1.0); Total Protein 7.5 g/dL (6.4-8.2)
== END | disposition home or self-care (01) ==
LOC: LAB 16:06
PROVIDERS: ATTEND Internal Medicine
DX: R10.9 Unspecified abdominal pain (principal)
CPT/HCPCS: 36415; 80053; 82105; 82150; 83690; 85025

== ENCOUNTER 2022-10-10 14:22 | Emergency (ER) | payer MEDICAID, OTHER ==
[~2022-10-10] VITALS: Ht 182.9 cm; Wt 101.5 kg
[2022-10-10] MEDS ORDERED: INSULIN LISPRO (HUMAN) 100 UNITS/ML ML SC ONE ×2 (15:45→18:45)
[2022-10-10] MEDS ORDERED: ONDANSETRON ODT 4 MG TAB PO ONE (15:45)
[2022-10-10 16:14] LABS: Basophils # (auto) 0.1 10 ^3/uL (0-0.2); Basophils % (auto) 1.2 % (0.0-2.0); Eosinophils # (auto) 0.3 10 ^3/uL (0-0.8); Eosinophils % (auto) 3.6 % (0.0-7.0); Hematocrit 44.8 % (41.0-53.0); Hemoglobin 15.3 g/dL (13.5-17.5); Lymphocytes # (auto) 2.1 10 ^3/uL (0.4-5.4); Lymphocytes % (auto) 29.6 % (10.0-50.0); Mean Corpuscular Hemoglobin 28.7 pg (28.0-32.0); Mean Corpuscular Hgb Conc. 34.1 g/dL (32.0-36.0); Mean Corpuscular Volume 84.1 fL (80.0-100.0); Monocytes # (auto) 0.3 10 ^3/uL (0-1.3); Monocytes % (auto) 4.9 % (0.0-12.0); Neutrophils # (auto) 4.3 10 ^3/uL (1.6-8.6); Neutrophils % (auto) 60.7 % (37.0-80.0); Nucleated Red Blood Cells % 0.1 %; Red Blood Cells 5.32 10^6/uL (4.5-5.90); Red Cell Distribution Width 14.5 % (11.8-14.3)
[2022-10-10 16:34] LABS: Albumin 3.9 g/dL (3.4-5.0); BUN/Creatinine Ratio 10.8; Calcium 9.7 mg/dL (8.5-10.1)
[2022-10-10 16:37] LABS: Bilirubin, Total 0.4 mg/dL (0.2-1.0); Total Protein 7.6 g/dL (6.4-8.2)
[2022-10-10 20:59] VITALS: BP 143/100
== END 2022-10-10 21:54 | disposition home or self-care (01) ==
LOC: ER 14:22
DX: E13.65 Other specified diabetes mellitus with hyperglycemia (principal); R14.0 Abdominal distension (gaseous); R16.0 Hepatomegaly, not elsewhere classified; K76.0 Fatty (change of) liver, not elsewhere classified; Z86.73 Personal history of transient ischemic attack (TIA), and cerebral infarction without residual deficits; K21.9 Gastro-esophageal reflux disease without esophagitis; Z90.49 Acquired absence of other specified parts of digestive tract; Z79.84 Long term (current) use of oral hypoglycemic drugs; Z79.899 Other long term (current) drug therapy
CPT/HCPCS: 36415; 74176; 80053; 82962; 83690; 84484; 85025; 93005; 96372; 99285; J1815; Q0162

== ENCOUNTER 2023-11-19 22:43 | Emergency (ER) | payer MEDICAID ==
[~2023-11-19] VITALS: Ht 182.9 cm; Wt 100.0 kg
[~2023-11-19 22:43] MED LIST changes: +GABA-1250 PO; -GABA300C10 PO; -SUCR1SUS10 PO; +SUCR1SUS26 PO
[2023-11-19 23:11] LABS: Basophils # (auto) 0.1 10 ^3/uL (0-0.2); Basophils % (auto) 0.8 % (0.0-2.0); Eosinophils # (auto) 0.2 10 ^3/uL (0-0.8); Eosinophils % (auto) 2.9 % (0.0-7.0); Hematocrit 43.2 % (41.0-53.0); Hemoglobin 14.1 g/dL (13.5-17.5); Lymphocytes # (auto) 2.4 10 ^3/uL (0.4-5.4); Lymphocytes % (auto) 37.7 % (10.0-50.0); Mean Corpuscular Hgb Conc. 32.7 g/dL (32.0-36.0); Mean Corpuscular Volume 85.8 fL (80.0-100.0); Monocytes # (auto) 0.5 10 ^3/uL (0-1.3); Monocytes % (auto) 7.4 % (0.0-12.0); Neutrophils # (auto) 3.3 10 ^3/uL (1.6-8.6); Neutrophils % (auto) 51.2 % (37.0-80.0); Nucleated Red Blood Cells % 0.1 %; Red Blood Cells 5.04 10^6/uL (4.5-5.90); White Blood Cell 6.4 10^3/uL (4.4-10.8)
[2023-11-19 23:36] LABS: Alanine Aminotransferase 22 U/L (7-40); Albumin 4.5 g/dL (3.2-4.8); Alkaline Phosphatase 79 U/L (46-116); Anion Gap 12 (5-15); Aspartate Aminotransferase 13 U/L (13-40); BUN/Creatinine Ratio 8.9 (10.0-20.0); Blood Urea Nitrogen 8 mg/dL (9-23); Carbon Dioxide 19 mmol/L (20-30); Chloride 108 mmol/L (98-107); Glucose 165 mg/dL (74-106); Magnesium 1.9 mg/dL (1.6-2.6); Potassium 3.5 mmol/L (3.5-5.1); Sodium 139 mmol/L (136-145)
[2023-11-19 23:37] LABS: Bilirubin, Total 0.2 mg/dL (0.2-1.0); Total Protein 7.1 g/dL (5.7-8.2)
[2023-11-20] MEDS ORDERED: NITROGLYCERIN 0.4 MG SL TAB SL ONE (08:30)
[2023-11-20] MEDS ORDERED: ASPirin 325 MG TAB PO ONE (08:30)
[2023-11-20 09:23] VITALS: BP 107/73; PULSE 79; RESP 18; TEMP 98; O2SAT 97
== END 2023-11-20 10:00 | disposition home or self-care (01) ==
LOC: ER 22:43
DX: R07.89 Other chest pain (principal); K21.9 Gastro-esophageal reflux disease without esophagitis; E11.9 Type 2 diabetes mellitus without complications; E78.5 Hyperlipidemia, unspecified; Z86.73 Personal history of transient ischemic attack (TIA), and cerebral infarction without residual deficits; Z98.890 Other specified postprocedural states; Z79.899 Other long term (current) drug therapy
CPT/HCPCS: 36415; 71045; 80053; 83735; 84484; 85025; 93005